=== PATIENT | male | born 1930 | race Caucasian/White ===

== ENCOUNTER 2016-08-03 10:23 | Inpatient (IN) | payer MEDICARE, BC ==
[2016-08-03] MEDS ORDERED: SODIUM CHLORIDE 0.9% 1,000 ML IV STA (10:36)
--- NOTE | 2016-08-03 10:41 | ED ---
General Adult HPI - General Chief complaint: Recheck/Abnormal Lab/Rx Stated complaint: Weakness Time Seen by Provider: 08/03/16 10:27 Source: patient Mode of arrival: EMS Limitations: no limitations - History of Present Illness Initial comments: Patient was sent to the [facility] department by his family because they do not feel that he is eating and drinking well. They're concerned he might be dehydrated. Patient denies any fever, chills, chest pain or shortness of breath. He has no belly or back pain. He has no nausea or vomiting. He has no lightheadedness or dizziness. He has had no recent illnesses or sick contacts. He denies any travel. He has no swelling the legs. He has no palpitations. He has had no changes in his medication. - Related Data Home Medications Medication Instructions Recorded Confirmed Isosorbide Mononitrate ER [Imdur] 30 mg PO DAILY 08/31/14 08/03/16 Finasteride [Proscar] 5 mg PO DAILY 02/22/15 08/03/16 Famotidine [Pepcid] 20 mg PO DAILY 10/03/15 08/03/16 Melatonin 10 mg PO HS 10/03/15 08/03/16 Nitroglycerin Sl Tabs [Nitrostat] 0.4 mg SL Q5M PRN 10/03/15 08/03/16 Levothyroxine Sodium [Synthroid] 100 mcg PO DAILY 10/04/15 08/03/16 Spironolactone [Aldactone] 25 mg PO DAILY 10/04/15 08/03/16 Acetaminophen/Diphenhydramine 2 tab PO HS 04/19/16 08/03/16 [Tylenol PM 500-25mg] Cyanocobalamin [Vitamin B-12] 500 mcg PO DAILY 04/19/16 08/03/16 Metolazone [Zaroxolyn] 5 mg PO DAILY PRN 04/19/16 08/03/16 Carvedilol [Coreg] 3.125 mg PO BID 08/03/16 08/03/16 Furosemide [Lasix] 10 mg PO DAILY 08/03/16 08/03/16 Furosemide [Lasix] 10 mg PO DAILY PRN 08/03/16 08/03/16 Furosemide [Lasix] 20 mg PO DAILY PRN 12/29/16 12/29/16 Ipratropium-Albuterol Nebulize 3 ml INHALATION RT-TID 08/03/16 08/03/16 [Duoneb 0.5 mg-3 mg/3 ml Soln] Nitrofurantoin Monohyd/M-Cryst 100 mg PO Q12HR 08/03/16 08/03/16 [Macrobid] hydrOXYzine HCL [Atarax] 10 mg PO HS 08/03/16 08/03/16 Previous Rx's Medication Instructions Recorded Amiodarone [Cordarone] 200 mg PO DAILY #30 tab 10/08/15 Tamsulosin HCl [Flomax] 0.4 mg PO HS #0 10/08/15 Allergies Allergy/AdvReac Type Severity Reaction Status Date / Time lisinopril [From Zestril] Allergy Unknown Verified 08/03/16 10:39 peanuts Allergy Cough Uncoded 08/03/16 10:35 No blood thinners AdvReac Unknown Uncoded 08/03/16 10:35 Review of Systems ROS Statement: Those systems with pertinent positive or pertinent negative responses have been documented in the HPI. ROS Other: All systems not noted in ROS Statement are negative. Past Medical History Past Medical History: Coronary Artery Disease (CAD), Chest Pain / Angina, Heart Failure, CVA/TIA, Hyperlipidemia, Hypertension, Myocardial Infarction (HI), Pneumonia Additional Past Medical History / Comment(s): Ischemic cardiomyopathy, CHF with EF 20%, nonsustained Vtach, CVAs x 2 with one hemorrhagic, R lower lobe pneumonia, UTIs, hypothyroid, BPH, divericulosis, anemia, sinus problems. Last Myocardial Infarction Date:: 09/06/2014 History of Any Multi-Drug Resistant Organisms: MRSA Date of last positivie culture/infection: 02/22/15 MDRO Source:: Urine Past Surgical History: AICD, Heart Catheterization, Pacemaker Additional Past Surgical History / Comment(s): pacemaker/ defibrillator, detached retina-unsure which eye, cataracts bilaterally , aortic stent, Past Anesthesia/Blood Transfusion Reactions: No Reported Reaction Type of Cardiac Device: Permanent Pacemaker Device Placement Date:: 09/06/2012 Past Psychological History: No Psychological Hx Reported Additional Psychological History / Comment(s): Pt has adult children (son and rudi-in-law) that reside with him. He ambulates with a walker. He no longer drives-family take him to appts. He has [employer] aide that showers pt twice a week. He is a [employer] . He is on a low sodium diet. Smoking Status: Former smoker Past Alcohol Use History: Rare Additional Past Alcohol Use History / Comment(s): Pt smoked from 1953 until about 1982. He was a pack and a half a day smoker. Past Drug Use History: None Reported - Past Family History Father Family Medical History: Myocardial Infarction (HI) General Exam Limitations: no limitations General appearance: alert, in no apparent distress Head exam: Present: atraumatic, normocephalic, normal inspection Eye exam: Present: normal appearance, PERRL, EOMI. Absent: scleral icterus, conjunctival injection, periorbital swelling ENT exam: Present: normal exam, mucous membranes moist Neck exam: Present: normal inspection. Absent: tenderness, meningismus, lymphadenopathy Respiratory exam: Present: normal lung sounds bilaterally. Absent: respiratory distress, wheezes, rales, rhonchi, stridor Cardiovascular Exam: Present: regular rate, normal rhythm, normal heart sounds. Absent: systolic murmur, diastolic murmur, rubs, gallop, clicks GI/Abdominal exam: Present: soft, normal bowel sounds. Absent: distended, tenderness, guarding, rebound, rigid Extremities exam: Present: normal inspection, full ROM, normal capillary refill. Absent: tenderness, pedal edema, joint swelling, calf tenderness Back exam: Present: normal inspection Neurological exam: Present: alert, oriented X3, CN II-XII intact Psychiatric exam: Present: normal affect, normal mood Skin exam: Present: warm, dry, intact, normal color. Absent: rash Course Vital Signs 08/03/16 08/03/16 08/03/16 10:33 11:32 12:10 Temperature 97 F L 97.4 F L Pulse Rate 50 L 50 L 50 L Respiratory 16 16 16 Rate Blood Pressure 124/58 110/58 110/57 O2 Sat by Pulse 94 L 98 97 Oximetry EKG Findings - EKG Comments: EKG Findings:: Twelve-lead EKG is obtained, interpreted by me as showing ventricular rate of 50 bpm, no P waves are present, there are pacer spikes present, QRS complexes are wide, no ST elevation or depression, interpreted by me as ventricular paced rhythm without acute ischemia. Medical Decision Making - Medical Decision Making Patient presents with decreased appetite. He has no elevated white count. Chest x-ray reveals multilobar pneumonia. I ordered blood cultures and IV antibiotics. Patient will be admitted to the hospital. - Lab Data Result diagrams: 08/03/16 10:54 08/03/16 10:54 Lab Results 08/03/16 08/03/16 08/03/16 Range/Units 10:54 10:54 10:54 WBC 11.1 H (3.8-10.6) k/uL RBC 4.71 (4.30-5.90) m/uL Hgb 14.3 (13.0-17.5) gm/dL Hct 45.3 (39.0-53.0) % MCV 96.1 (80.0-100.0) fL MCH 30.2 (25.0-35.0) pg MCHC 31.5 (31.0-37.0) g/dL RDW 15.7 H (11.5-15.5) % Plt Count 147 L (150-450) k/uL Neutrophils % 78 % Lymphocytes % 8 % Monocytes % 7 % Eosinophils % 6 % Basophils % 0 % Neutrophils # 8.6 H (1.3-7.7) k/uL Lymphocytes # 0.8 L (1.0-4.8) k/uL Monocytes # 0.7 (0-1.0) k/uL Eosinophils # 0.7 (0-0.7) k/uL Basophils # 0.0 (0-0.2) k/uL Manual Slide Review Performed Toxic Granulation Present Hypochromasia Moderate Poikilocytosis (manual Present Target Cells Present Crenated Cell Present PT 15.6 H (9.0-12.0) sec INR 1.6 (<1.1) APTT 24.6 (22.0-30.0) sec Sodium 140 (137-145) mmol/L Potassium 4.4 (3.5-5.1) mmol/L Chloride 100 (98-107) mmol/L Carbon Dioxide 27 (22-30) mmol/L Anion Gap 13 mmol/L BUN 38 H (9-20) mg/dL Creatinine 0.93 (0.66-1.25) mg/dL Est GFR (MDRD) Af Amer >60 (>60 ml/min/1.73 sqM) Est GFR (MDRD) Non-Af >60 (>60 ml/min/1.73 sqM) Glucose 96 (74-99) mg/dL Calcium 7.9 L (8.4-10.2) mg/dL Magnesium 2.1 (1.6-2.3) mg/dL Total Bilirubin 4.1 H (0.2-1.3) mg/dL AST 329 H (17-59) U/L ALT 208 H (21-72) U/L Alkaline Phosphatase 143 H (38-126) U/L Troponin I (0.000-0.034) ng/mL Total Protein 6.5 (6.3-8.2) g/dL Albumin 3.1 L (3.5-5.0) g/dL 08/03/16 Range/Units 10:54 WBC (3.8-10.6) k/uL RBC (4.30-5.90) m/uL Hgb (13.0-17.5) gm/dL Hct (39.0-53.0) % MCV (80.0-100.0) fL MCH (25.0-35.0) pg MCHC (31.0-37.0) g/dL RDW (11.5-15.5) % Plt Count (150-450) k/uL Neutrophils % % Lymphocytes % % Monocytes % % Eosinophils % % Basophils % % Neutrophils # (1.3-7.7) k/uL Lymphocytes # (1.0-4.8) k/uL Monocytes # (0-1.0) k/uL Eosinophils # (0-0.7) k/uL Basophils # (0-0.2) k/uL Manual Slide Review Toxic Granulation Hypochromasia Poikilocytosis (manual Target Cells Crenated Cell PT (9.0-12.0) sec INR (<1.1) APTT (22.0-30.0) sec Sodium (137-145) mmol/L Potassium (3.5-5.1) mmol/L Chloride (98-107) mmol/L Carbon Dioxide (22-30) mmol/L Anion Gap mmol/L BUN (9-20) mg/dL Creatinine (0.66-1.25) mg/dL Est GFR (MDRD) Af Amer (>60 ml/min/1.73 sqM) Est GFR (MDRD) Non-Af (>60 ml/min/1.73 sqM) Glucose (74-99) mg/dL Calcium (8.4-10.2) mg/dL Magnesium (1.6-2.3) mg/dL Total Bilirubin (0.2-1.3) mg/dL AST (17-59) U/L ALT (21-72) U/L Alkaline Phosphatase (38-126) U/L Troponin I 0.021 (0.000-0.034) ng/mL Total Protein (6.3-8.2) g/dL Albumin (3.5-5.0) g/dL Disposition Clinical Impression: Pneumonia Disposition: ADMITTED IP TO THIS HOSP Condition: Fair Time of Disposition: 12:31
[2016-08-03 11:22] LABS: ALT 208 U/L (21-72); AST 329 U/L (17-59); Alkaline Phosphatase 143 U/L (38-126); Anion Gap 13 mmol/L; Blood Urea Nitrogen 38 mg/dL (9-20); Calcium 7.9 mg/dL (8.4-10.2); Carbon Dioxide 27 mmol/L (22-30); Chloride 100 mmol/L (98-107); Glucose 96 mg/dL (74-99); Magnesium 2.1 mg/dL (1.6-2.3); Non-African American GFR(MDRD) >60 (>60 ml/min/1.73 sqM); Sodium 140 mmol/L (137-145); Total Bilirubin 4.1 mg/dL (0.2-1.3); Total Protein 6.5 g/dL (6.3-8.2)
[2016-08-03 11:26] LABS: Potassium 4.4 mmol/L (3.5-5.1)
[2016-08-03 11:32] LABS: INR 1.6 (<1.1); Partial Thromboplastin Time 24.6 sec (22.0-30.0); Prothrombin Time 15.6 sec (9.0-12.0)
[2016-08-03 11:33] LABS: Basophils % (A) 0 %; CH 29.9; CHCM 31.3; Eosinophils # (A) 0.7 k/uL (0-0.7); Eosinophils % (A) 6 %; HCT 45.3 % (39.0-53.0); HDW 3.01; HGB 14.3 gm/dL (13.0-17.5); Hypochromasia Moderate; Luc # (Auto) 0.19; Luc % (Auto) 2; Lymphocytes # (A) 0.8 k/uL (1.0-4.8); Lymphocytes % (A) 8 %; MCH 30.2 pg (25.0-35.0); MCHC 31.5 g/dL (31.0-37.0); MCV 96.1 fL (80.0-100.0); Mean Platelet Volume 9.5; Monocytes # (A) 0.7 k/uL (0-1.0); Monocytes % (A) 7 %; Neutrophils # (A) 8.6 k/uL (1.3-7.7); Neutrophils % (A) 78 %; RBC 4.71 m/uL (4.30-5.90); RDW 15.7 % (11.5-15.5); WBC 11.1 k/uL (3.8-10.6)
--- NOTE | 2016-08-03 11:39 | XR ---
EXAMINATION TYPE: XR chest 2V DATE OF EXAM: 08/03/2016 11:15 AM COMPARISON: Prior chest x-ray April 19, 2016 HISTORY: Cough and syncope. TECHNIQUE: Frontal and lateral views of the chest are obtained. FINDINGS: The osseous structures are intact. There is persistent cardiomegaly with multilead pacema ker/AICD. There is persistent left basilar opacity felt to reflect moderate-sized pleural effusion an d associated basilar atelectasis and/or infiltrate. New right upper lobe opacity is present IMPRESSION: Cardiomegaly with worsening right basilar opacity felt to reflect increasing moderate-si zed left pleural effusion and associated left basilar atelectasis and/or infiltrate. New right upper lobe infiltrate also noted.
--- NOTE | 2016-08-03 11:49 | CT ---
EXAMINATION TYPE: CT brain wo con DATE OF EXAM: 08/03/2016 11:18 AM COMPARISON: 04/20/2016 HISTORY: syncope, generalized weakness CT DLP: 1195 mGycm, Automated exposure control for dose reduction was used. CONTRAST: None CT of the brain is performed utilizing 3 mm thick sections through the posterior fossa and 3 mm thick sections through the remaining calvarium. Study is performed within 24 hours of arrival to the hosp ital. No abnormal hyperdensity is present to suggest an acute intracranial hemorrhage. No mass lesion is evident. No acute infarcts are evident. Periventricular white matter hypodensity is present likely on the basi s of chronic white matter ischemic changes. There is an old watershed infarct in the left parietal-oc cipital region. Old left frontal lobe subcortical infarct may also be present. A right smaller gasca hed region infarct may be present. Findings were present previously. Ventricles and sulci are prominent for the patient age. Mucosal thickening is within the left maxillary sinus. Remaining paranasal sinuses and mastoid air ce lls included within the [id number] are clear. IMPRESSIONS: 1. Atrophy and periventricular white matter changes. 2. Old prior infarcts, stable from April 2016
[2016-08-03 11:51] LABS: Manual Review Performed
[2016-08-03 11:52] LABS: Crenated RBC Present; Toxic Granulation Present
[2016-08-03 11:53] LABS: Target Cells Present
[2016-08-03] MEDS ORDERED: metroNIDAZOLE-NS PMX 500 MG in SALINE 1 100ML.BAG IVPB STA (12:29)
[2016-08-03] MEDS ORDERED: MORPHINE SULFATE 4 MG/ML SYRINGE IV PRN (12:31)
[2016-08-03] MEDS ORDERED: NALOXONE 0.4 MG/ML 1 ML VIAL IV PRN (12:31)
[2016-08-03] MEDS ORDERED: ONDANSETRON 4 MG/2 ML VIAL IVP PRN (12:31)
[2016-08-03] MEDS ORDERED: TEMAZEPAM 15 MG CAP PO PRN (12:31)
[2016-08-03 12:48] LABS: Appearance,Urine Clear (Clear); Bilirubin,Urine 1+ (Negative); Glucose,Urine (UA) Negative (Negative); Ketones,Urine Negative (Negative); Leukocyte Esterase,Urine Trace (Negative); Nitrite,Urine Negative (Negative); Particle Count 6118; Protein,Urine Trace (Negative); RBC,Urine 7 /hpf (0-5); Specific Gravity,Urine 1.016 (1.001-1.035); Squamous Epithelial Cell,Urine <1 /hpf (0-4); UA Billing (MACRO vs. MICRO) MICRO; WBC,Urine 9 /hpf (0-5)
[2016-08-03] MEDS: IPRATROPIUM-ALBUTEROL 3 ML NEB INHALATION SCH ×2 (13:44→20:00)
[2016-08-03] MEDS: CARVEDILOL 3.125 MG TAB PO SCH (17:24)
[2016-08-03] MEDS: DOXYCYCLINE 50 MG CAP PO SCH (22:00)
[2016-08-03] MEDS: hydrOXYzine HCL 10 MG TAB PO SCH (22:00)
[2016-08-03] MEDS: TAMSULOSIN 0.4 MG CAP.ER.24H PO SCH (22:01)
[2016-08-03] MEDS: FAMOTIDINE 20 MG TAB PO SCH (22:01)
[2016-08-03] MEDS: FUROSEMIDE 10 MG/ML 2 ML VIAL IV SCH (22:07)
[2016-08-04] MEDS: LEVOTHYROXINE 100 MCG TAB PO SCH (06:22)
[2016-08-04] MEDS: IPRATROPIUM-ALBUTEROL 3 ML NEB INHALATION SCH ×3 (07:30→20:25)
[2016-08-04] MEDS: ISOSORBIDE MONONITRATE ER 30 MG TAB.ER.24H PO SCH (07:47)
[2016-08-04] MEDS: AMIODARONE 200 MG TAB PO SCH (07:47)
[2016-08-04] MEDS: CARVEDILOL 3.125 MG TAB PO SCH ×2 (07:47→17:29)
[2016-08-04] MEDS: HEPARIN SODIUM,PORCINE 5,000 UNIT/ML 1 ML VIAL SQ SCH ×2 (07:51→11:18)
[2016-08-04] MEDS: CYANOCOBALAMIN 500 MCG TAB PO SCH (07:51)
[2016-08-04] MEDS: FUROSEMIDE 10 MG/ML 2 ML VIAL IV SCH ×2 (07:51→21:53)
[2016-08-04] MEDS: SPIRONOLACTONE 25 MG TAB PO SCH (07:51)
[2016-08-04] MEDS: FINASTERIDE 5 MG TAB PO SCH (07:51)
[2016-08-04] MEDS: FAMOTIDINE 20 MG TAB PO SCH ×2 (07:51→21:55)
[2016-08-04] MEDS: DOXYCYCLINE 50 MG CAP PO SCH ×2 (07:51→21:53)
--- NOTE | 2016-08-04 08:36 | HP ---
DATE OF ADMISSION: Chief complaint is generalized weakness. HISTORY OF PRESENTING ILLNESS: Mr. Isbell is an 85-year-old male with a known history of ischemic cardiomyopathy, status post AICD placement, hypertension, hyperlipidemia, and recent MRSA urinary tract infection, status post antibiotic course of vancomycin completed last Sunday, came to the hospital with complaints of coughing of blood and generalized weakness. Evidently patient does not feel good enough to eat and drink very well. Concerned about patient is dehydrated. Otherwise denied any complaints of fever or chills. No chest pain or short of breath. No abdominal pain, nausea, vomiting. As per the patient is poor historian and as well as family member at bedside, patient apparently has not been eating and lost about 16 pounds during the last 2 weeks. No recent travel. No sick contacts at home. Patient's family is concerned about rather he had MRSA infection again. Apparently the patient had urine sample left at physician's office about 2 or 3 days back to be tested for MRSA at that time. Otherwise, the patient currently denied any complaints of cough or sputum production. Patient had a chest x-ray done in the ER showed cardiomegaly and with worsening right basilar opacity felt to reflect increasing moderate size left pleural effusion and associated left basilar atelectasis or infiltrate. New right upper lobe infiltrate also noted. Patient was started on antibiotics in the form ceftriaxone and doxycycline at this time. CT of the brain on admission showed atrophy and periventricular white matter changes and old prior infarcts, stable from April 2016. Laboratory data slightly elevated AST, ALT, and alk phos levels and total bilirubin. Troponin is negative. Albumin 3.1. UA showed trace protein and moderate blood, nitrite negative, trace leukocyte esterase, WBC 9. Urine culture was ordered as well. REVIEW OF SYSTEMS: CONSTITUTIONAL: No fever. No chills. Patient does have generalized weakness and malaise. RESPIRATORY: No cough or sputum production. Patient coughed up blood streak prior to admission. CARDIOVASCULAR: No chest pain. No short of breath. No leg swelling. ABDOMEN: No nausea, vomiting, abdominal pain. GENITOURINARY: Negative. ENDOCRINE: Negative. PSYCHIATRIC: Negative. SKIN: Negative. All other 14-point review of systems negative except the above. Past medical history includes ischemic cardiomyopathy with ejection fraction 20% , status post AICD placement, coronary artery disease, CHF with systolic dysfunction, history of CVA/TIA, hypertension, hyperlipidemia, history of AR, CVA x2 with one hemorrhagic, right lower lobe pneumonia history and recent MRSA urinary tract infection, hypothyroidism, BPH, diverticulosis, anemia and sinus problem. PAST SURGICAL HISTORY: AICD placement, cardiac catheterization, detached retina, cataracts bilaterally, aortic stent placement. PSYCHOSOCIAL HISTORY: Patient ambulates with walker. No psychosocial history. SOCIAL HISTORY: Patient a former smoker, quit in 1982. He was 1-1/2 pack per day. FAMILY HISTORY: Father had AR. Allergies include LISINOPRIL, PEANUTS and NO BLOOD THINNERS. Home medications include: 1. Proscar. 2. Famotidine. 3. Melatonin. 4. Nitroglycerin sublingual. 5. Levothyroxine, 6. Spironolactone. 7. Tylenol PM. 8. Metolazone. 9. Coreg. 10. Lasix. 11. DuoNeb. 12. Nitrofurantoin. 13. Nitroglycerin. 14. Atarax. ( ) medication include amiodarone and Flomax. PHYSICAL EXAMINATION: An 85-year-old male lying in the bed. Awake, alert, oriented x3, appears to be in no apparent distress. VITALS: On admission, blood pressure is 107/55, pulse is 55, respiratory rate 16, temperature afebrile, pulse ox 97% on room air. HEENT: Atraumatic, normocephalic. Neck is supple. No JVD. CVS: S1, S2 heard. No murmur, no gallop. LUNGS: Bilateral diminished breath sounds basally. Crackles at the left base. No wheezing. Nonlabored breathing. ABDOMEN: Soft, nontender. Bowel sounds present. MANAGER HEART: Awake, alert, oriented x3. No focal neurologic deficits. Cranial nerves grossly intact. EXTREMITIES: Bilateral trace edema. Pulses are palpable bilaterally. No clubbing or cyanosis. PSYCHIATRIC: Cooperative. LABORATORY DATA: WBC 11.1, hemoglobin 14.3, platelets 147. INR 1.6. Sodium 140, potassium 4.4, chloride 100, bicarb is 27. BUN 38, creatinine 0.93. Total bilirubin is 4.1. AST 329, ALT is 208, alk phos 143. Albumin 3.1. Troponin 0.021. UA showed trace glucose, moderate blood, trace leukocyte esterase and WBC 9. Urine culture was ordered. Chest x-ray showed cardiomegaly with worsening right basilar opacity felt to reflect increasing moderate size left pleural effusion and associated left basilar atelectasis or infiltrate; new right upper lobe infiltrate also noted. IMPRESSION: 1. Bilateral pneumonia. 2. Worsening left pleural effusion with possible acute on chronic congestive heart failure with systolic dysfunction, will check BNP level. 3. Recent methicillin-resistant Staphylococcus aureus urinary tract infection, status post antibiotic course with vancomycin. Patient still complaining of urinary symptoms and will order UA and urine culture as well. 4. Ischemic cardiomyopathy, ejection fraction 20%, status post AICD placement. 5. Acute coronary artery disease. 6. History of myocardial infarction. 7. Hypothyroidism. 8. Hypertension. 9. Gastroesophageal reflux disease. 10. History of cerebrovascular accident/transient ischemic attack, no residual weakness with one hemorrhagic cerebrovascular accident. 11. Elevated liver enzymes, possible hepatic congestion. 12. Hyperbilirubinemia. 13. Mild to moderate protein calorie malnutrition with albumin level of 3.1 due to poor oral intake. 14. Medical debility. DISCUSSION AND PLAN: An 85-year-old male with known history of multiple medical problems and comorbid conditions was admitted to the hospital with generalized weakness and found to have bilateral pneumonia and worsening left pleural effusion. Patient has a history of biventricular pacemaker placement. Patient will be continued on antibiotics in the form of ceftriaxone ( ) for pneumonia and continue the diuresis as blood pressure tolerates. Follow up closely. Further recommendations depends on clinical course. Will get cardiology consultation. Prognosis guarded. I did discuss with his family at bedside.
[2016-08-04 08:44] LABS: Basophils # (A) 0.1 k/uL (0-0.2); Basophils % (A) 1 %; CH 29.3; CHCM 29.8; Eosinophils # (A) 0.3 k/uL (0-0.7); Eosinophils % (A) 2 %; HCT 46.8 % (39.0-53.0); HDW 2.94; HGB 14.3 gm/dL (13.0-17.5); Hypochromasia Marked; Luc # (Auto) 0.25; Luc % (Auto) 2; Lymphocytes # (A) 0.6 k/uL (1.0-4.8); Lymphocytes % (A) 5 %; MCH 30.3 pg (25.0-35.0); MCHC 30.5 g/dL (31.0-37.0); MCV 99.4 fL (80.0-100.0); Macrocytosis Slight; Mean Platelet Volume 9.7; Monocytes # (A) 0.8 k/uL (0-1.0); Monocytes % (A) 7 %; Neutrophils # (A) 9.5 k/uL (1.3-7.7); Neutrophils % (A) 83 %; RBC 4.71 m/uL (4.30-5.90); RDW 15.8 % (11.5-15.5); WBC 11.5 k/uL (3.8-10.6); WBC (Perox) 11.56
[2016-08-04 08:58] LABS: Manual Review Performed
[2016-08-04 08:59] LABS: Target Cells Present
[2016-08-04 09:02] LABS: Anion Gap 13 mmol/L; Blood Urea Nitrogen 30 mg/dL (9-20); Calcium 7.7 mg/dL (8.4-10.2); Carbon Dioxide 26 mmol/L (22-30); Chloride 100 mmol/L (98-107); Glucose 100 mg/dL (74-99); Non-African American GFR(MDRD) >60 (>60 ml/min/1.73 sqM); Sodium 139 mmol/L (137-145)
[2016-08-04 09:08] LABS: Potassium 3.9 mmol/L (3.5-5.1)
[2016-08-04] MEDS: TAMSULOSIN 0.4 MG CAP.ER.24H PO SCH (21:53)
[2016-08-04] MEDS: hydrOXYzine HCL 10 MG TAB PO SCH (21:54)
[2016-08-05] MEDS: LEVOTHYROXINE 100 MCG TAB PO SCH (06:45)
[2016-08-05 09:02] LABS: ALT 248 U/L (21-72); AST 287 U/L (17-59); Alkaline Phosphatase 150 U/L (38-126); Anion Gap 10 mmol/L; Blood Urea Nitrogen 28 mg/dL (9-20); Calcium 7.8 mg/dL (8.4-10.2); Carbon Dioxide 28 mmol/L (22-30); Chloride 100 mmol/L (98-107); Glucose 97 mg/dL (74-99); Non-African American GFR(MDRD) >60 (>60 ml/min/1.73 sqM); Sodium 138 mmol/L (137-145); Total Bilirubin 4.4 mg/dL (0.2-1.3); Total Protein 5.2 g/dL (6.3-8.2)
[2016-08-05] MEDS: DOXYCYCLINE 50 MG CAP PO SCH ×2 (09:10→21:05)
[2016-08-05] MEDS: CARVEDILOL 3.125 MG TAB PO SCH ×3 (09:10→17:56)
[2016-08-05] MEDS: FUROSEMIDE 10 MG/ML 2 ML VIAL IV SCH ×2 (09:11→21:05)
[2016-08-05] MEDS: ISOSORBIDE MONONITRATE ER 30 MG TAB.ER.24H PO SCH ×2 (09:11→09:26)
[2016-08-05] MEDS: AMIODARONE 200 MG TAB PO SCH ×2 (09:11→09:25)
[2016-08-05] MEDS: CYANOCOBALAMIN 500 MCG TAB PO SCH (09:11)
[2016-08-05] MEDS: FAMOTIDINE 20 MG TAB PO SCH ×2 (09:11→21:04)
[2016-08-05] MEDS: FINASTERIDE 5 MG TAB PO SCH (09:11)
[2016-08-05 09:20] LABS: Potassium 2.9 mmol/L (3.5-5.1)
[2016-08-05] MEDS: SPIRONOLACTONE 25 MG TAB PO SCH (09:26)
[2016-08-05] MEDS ORDERED: Potassium Replacement Protocol 1 EACH MISC MISCELLANE PRN (09:26)
[2016-08-05] MEDS: POTASSIUM CHLORIDE ER 20 MEQ TAB.ER PO SCH ×2 (10:00→10:50)
[2016-08-05] MEDS: POTASSIUM CHLORIDE 10 MEQ, LIDOCAINE 2% INJ 10 MG in SODIUM CHLORIDE 0.9% 100 ML IV SCH ×3 (11:12→14:49)
[2016-08-05] MEDS: IPRATROPIUM-ALBUTEROL 3 ML NEB INHALATION SCH ×3 (12:58→20:05)
--- NOTE | 2016-08-05 14:02 | PN ---
DATE OF SERVICE: 08/04/2016 INTERVAL HISTORY: Mr. Isbell is an 85-year-old male with known history of ischemic cardiomyopathy status post biventricular ICD, hypertension, hyperlipidemia, recent MRSA urinary tract infection, status post antibiotic course with vancomycin completed last Sunday, was admitted to the hospital with complaints of generalized weakness and not feeling well and unable to tolerate p.o. diet. Otherwise patient was found to have bilateral pneumonia and was started on antibiotics and currently patient is clinically improved. Otherwise patient also has bilateral pleural effusion for which the patient was started on IV Lasix as well for acute CHF exacerbation. Urine culture was sent. Patient says that he is feeling better today. Otherwise, patient denied any fever or chills. No acute overnight issues. No chest pain. No worsening shortness of breath. No leg swelling. REVIEW OF SYSTEMS: CONSTITUTIONAL: No fever. No chills. RESPIRATORY: No cough or sputum production. CARDIOVASCULAR: No chest pain. No worsening short of breath. ABDOMEN: No nausea, vomiting or abdominal pain. GENITOURINARY: Negative. ENDOCRINE: Negative. PSYCHIATRIC: Negative. SKIN: Negative. All other fourteen point review of systems negative except as above. Current medications include: DuoNeb, Cordarone, Coreg, ceftriaxone, B12, doxycycline, Pepcid, Proscar, Lasix, hydralazine, Imdur, Levothyroxine, morphine sulfate, Narcan, Zofran, Aldactone, tamsulosin, Restoril and Ultram. PHYSICAL EXAMINATION: An 85-year-old male lying in bed comfortably. Awake, alert, oriented x3, appears to be in no apparent distress. VITALS: Blood pressure is 105/48, pulse is 61, respirations 18, temperature afebrile, pulse ox is 90% on 2-L nasal cannula. HEENT: Atraumatic, normocephalic. Neck is supple. No JVD. CVS: S1, S2 heard. No murmurs, no gallop. LUNGS: Bilateral air entry is present. No wheezing. No crackles. Nonlabored breathing. ABDOMEN: Soft, nontender. Bowel sounds are present. LUNGS: Bilateral air entry is present. Decreased breath sounds basally and diminished breath sounds. No wheezing. WEED THINNER: Awake, alert, oriented x3. No focal neurologic deficit. EXTREMITIES: Bilateral lower extremity 2+ edema. Pulses palpable bilaterally. No clubbing or cyanosis. PSYCHIATRIC: Cooperative. LABORATORY DATA: WBC 11.5, hemoglobin 14.3, platelets 89, sodium 139, potassium 3.9, chloride 100, bicarb is 26. BUN 30, creatinine 0.9, calcium 7.7. IMPRESSION: 1. Bilateral pneumonia. 2. Acute on chronic congestive heart failure with systolic dysfunction with worsening left pleural effusion. 3. Recent methicillin-resistant Staphylococcus aureus urinary tract infection, status post antibiotic course with vancomycin. Repeat urine culture was ordered. Urinalysis is not very suggestive of infection. 4. Ischemic cardiomyopathy with ejection fraction 20%, status post biventricular ICD. 5. History of coronary artery disease. 6. History of myocardial infarction. 7. Hypothyroidism. 8. Hypertension. 9. Gastroesophageal reflux disease. 10. History of cerebrovascular accident/transient ischemic attack. No residual weakness with history of hemorrhagic cerebrovascular accident. 11. Elevated liver enzymes, positive hepatic congestion. Will follow up repeat levels. 12. Hyperbilirubinemia. 13. Mild to moderate protein calorie malnutrition. 14. Medical debility. 15. Poor oral intake. DISCUSSION AND PLAN: This 85-year-old male admitted to the hospital with generalized weakness and malaise and not tolerating p.o. diet. Patient will be continued on the antibiotics and encourage p.o. intake. Continue with IV diuresis. The patient improved clinically. Will continue the current management. Further recommendations based on clinical course. Prognosis is guarded.
[2016-08-05] MEDS: hydrOXYzine HCL 10 MG TAB PO SCH (21:05)
[2016-08-05] MEDS: TAMSULOSIN 0.4 MG CAP.ER.24H PO SCH (21:05)
[2016-08-06] MEDS: FUROSEMIDE 10 MG/ML 2 ML VIAL IV SCH ×2 (08:09→20:48)
[2016-08-06] MEDS: IPRATROPIUM-ALBUTEROL 3 ML NEB INHALATION SCH ×3 (08:29→19:49)
[2016-08-06] MEDS: CYANOCOBALAMIN 500 MCG TAB PO SCH (11:09)
[2016-08-06] MEDS: LEVOTHYROXINE 100 MCG TAB PO SCH (11:09)
[2016-08-06] MEDS: SPIRONOLACTONE 25 MG TAB PO SCH (11:09)
[2016-08-06] MEDS: DOXYCYCLINE 50 MG CAP PO SCH ×2 (11:09→20:48)
[2016-08-06] MEDS: FAMOTIDINE 20 MG TAB PO SCH ×2 (11:10→20:48)
[2016-08-06] MEDS: CARVEDILOL 3.125 MG TAB PO SCH ×2 (11:10→17:01)
[2016-08-06] MEDS: AMIODARONE 200 MG TAB PO SCH (11:10)
[2016-08-06] MEDS: ISOSORBIDE MONONITRATE ER 30 MG TAB.ER.24H PO SCH (11:10)
[2016-08-06] MEDS: FINASTERIDE 5 MG TAB PO SCH (11:10)
--- NOTE | 2016-08-06 11:33 | US ---
EXAMINATION TYPE: US liver DATE OF EXAM: 08/06/2016 11:04 AM COMPARISON: on PACS CLINICAL HISTORY: MRSA, poor historian, liver. Patient unable to turn LLD. . EXAM MEASUREMENTS: Liver Length: 16.8 cm Gallbladder Wall: 0.3 cm CBD: 0.5 cm Right Kidney: 10.9 x 5.1 x 5.1 cm TECHNOLOGIST IMPRESSION: Anatomy- Pancreas: Echogenic, tail not well seen due to overlying bowel gas Liver: wnl Gallbladder: possible sludge seen, no sign of stones or mass Evidence for sonographic Farr's sign: neg CBD: wnl Right Kidney: slightly echogenic IMPRESSION: Sludge within the gallbladder. Normal Values: Liver Length: < 16cm wnl, 17-18cm upper limits, >18cm enlarged Renal Length = 9 - 12cm GB Wall: < 0.3cm CBD: < 0.6cm or < 1.0cm post cholecystectomy
[2016-08-06] MEDS: TAMSULOSIN 0.4 MG CAP.ER.24H PO SCH (20:48)
[2016-08-06] MEDS: hydrOXYzine HCL 10 MG TAB PO SCH (20:48)
[2016-08-07] MEDS: LEVOTHYROXINE 100 MCG TAB PO SCH (06:30)
[2016-08-07] MEDS: IPRATROPIUM-ALBUTEROL 3 ML NEB INHALATION SCH ×4 (07:21→21:25)
[2016-08-07] MEDS: CARVEDILOL 3.125 MG TAB PO SCH ×2 (09:31→17:19)
[2016-08-07] MEDS: FAMOTIDINE 20 MG TAB PO SCH ×2 (09:31→20:12)
[2016-08-07] MEDS: DOXYCYCLINE 50 MG CAP PO SCH ×2 (09:31→20:12)
[2016-08-07] MEDS: ISOSORBIDE MONONITRATE ER 30 MG TAB.ER.24H PO SCH (09:31)
[2016-08-07] MEDS: AMIODARONE 200 MG TAB PO SCH (09:31)
[2016-08-07] MEDS: CYANOCOBALAMIN 500 MCG TAB PO SCH (09:31)
[2016-08-07] MEDS: FUROSEMIDE 10 MG/ML 2 ML VIAL IV SCH ×2 (09:32→20:12)
[2016-08-07] MEDS: SPIRONOLACTONE 25 MG TAB PO SCH (09:32)
[2016-08-07] MEDS: FINASTERIDE 5 MG TAB PO SCH (09:32)
[2016-08-07 12:08] VITALS: BMI 23.0
--- NOTE | 2016-08-07 14:12 | XR ---
EXAMINATION TYPE: XR chest 1V DATE OF EXAM: 08/07/2016 1:38 PM COMPARISON: Prior chest x-ray 03 August 2016 HISTORY: Pneumonia TECHNIQUE: Single frontal view of the chest is obtained. FINDINGS: Airspace disease in the right upper lobe persists. Interstitium is increased. Retrocardiac density is again noted. No evident pneumothorax. Intracardiac defibrillator leads are stable, the he art is enlarged. IMPRESSION: Correlate for congestive heart failure with possible associated effusion, edema, atelect asis, pneumonia not excluded, correlate, follow-up recommended.
[2016-08-07] MEDS: hydrOXYzine HCL 10 MG TAB PO SCH (20:12)
[2016-08-07] MEDS: TAMSULOSIN 0.4 MG CAP.ER.24H PO SCH (20:13)
[2016-08-08 03:45] LABS: Basophils # (A) 0.1 k/uL (0-0.2); Basophils % (A) 1 %; CH 29.9; CHCM 30.9; Eosinophils # (A) 0.2 k/uL (0-0.7); Eosinophils % (A) 2 %; HCT 40.2 % (39.0-53.0); HDW 2.87; HGB 12.3 gm/dL (13.0-17.5); Hypochromasia Moderate; Luc # (Auto) 0.14; Luc % (Auto) 1; Lymphocytes # (A) 0.7 k/uL (1.0-4.8); Lymphocytes % (A) 7 %; MCH 29.7 pg (25.0-35.0); MCHC 30.5 g/dL (31.0-37.0); MCV 97.4 fL (80.0-100.0); Macrocytosis Slight; Mean Platelet Volume 8.4; Monocytes # (A) 0.7 k/uL (0-1.0); Monocytes % (A) 6 %; Neutrophils # (A) 8.8 k/uL (1.3-7.7); Neutrophils % (A) 83 %; RBC 4.13 m/uL (4.30-5.90); RDW 15.9 % (11.5-15.5); WBC 10.6 k/uL (3.8-10.6); WBC (Perox) 10.79
[2016-08-08 03:48] LABS: ALT 179 U/L (21-72); AST 186 U/L (17-59); Alkaline Phosphatase 127 U/L (38-126); Anion Gap 9 mmol/L; Blood Urea Nitrogen 30 mg/dL (9-20); Calcium 7.5 mg/dL (8.4-10.2); Carbon Dioxide 29 mmol/L (22-30); Chloride 105 mmol/L (98-107); Glucose 95 mg/dL (74-99); Non-African American GFR(MDRD) >60 (>60 ml/min/1.73 sqM); Potassium 3.4 mmol/L (3.5-5.1); Sodium 143 mmol/L (137-145); Total Bilirubin 5.5 mg/dL (0.2-1.3)
[2016-08-08] MEDS ORDERED: Potassium Replacement Protocol 1 EACH MISC MISCELLANE PRN (04:31)
[2016-08-08] MEDS: LEVOTHYROXINE 100 MCG TAB PO SCH (06:16)
[2016-08-08] MEDS: IPRATROPIUM-ALBUTEROL 3 ML NEB INHALATION SCH ×3 (07:24→19:23)
[2016-08-08] MEDS: ISOSORBIDE MONONITRATE ER 30 MG TAB.ER.24H PO SCH (08:00)
[2016-08-08] MEDS: FUROSEMIDE 10 MG/ML 2 ML VIAL IV SCH ×3 (08:03→23:18)
[2016-08-08] MEDS: POTASSIUM CHLORIDE ER 20 MEQ TAB.ER PO SCH ×2 (08:03→10:46)
[2016-08-08] MEDS: CARVEDILOL 3.125 MG TAB PO SCH ×2 (08:03→15:42)
[2016-08-08] MEDS: DOXYCYCLINE 50 MG CAP PO SCH ×2 (08:04→20:57)
[2016-08-08] MEDS: CYANOCOBALAMIN 500 MCG TAB PO SCH (08:04)
[2016-08-08] MEDS: FINASTERIDE 5 MG TAB PO SCH (08:04)
[2016-08-08] MEDS: AMIODARONE 200 MG TAB PO SCH (08:04)
[2016-08-08] MEDS: SPIRONOLACTONE 25 MG TAB PO SCH (08:04)
[2016-08-08] MEDS: FAMOTIDINE 20 MG TAB PO SCH ×2 (08:04→20:57)
[2016-08-08] MEDS: traMADol 50 MG TAB PO PRN ×2 (10:19→20:58)
--- NOTE | 2016-08-08 13:46 | PN ---
DATE OF SERVICE: 08/07/2016 INTERVAL HISTORY: Mr. Isbell is an 85-year-old male with a known history of ischemic cardiomyopathy status post ICD , hypertension, hyperlipidemia, and recent MRSA urinary tract infection and status post antibiotic course of vancomycin ( ) admitted to the hospital with generalized weakness, not feeling well and unable to tolerate p.o. diet. Patient was found to have bilateral pneumonia and pleural effusions and currently being diuresed with IV Lasix as well as antibiotics for possible pneumonia, currently the patient today more awake and oriented, tolerating a p.o. diet slightly. Otherwise, denied any fever, chills. No acute overnight issues. REVIEW OF SYSTEMS: CONSTITUTIONAL: No fever, no chills. RESPIRATORY: No cough or sputum production. CARDIOVASCULAR: No chest pain or shortness of breath. ABDOMEN: No nausea, vomiting. No abdominal pain. GENITOURINARY: Negative. ENDOCRINE: Negative. PSYCHIATRY: Negative. All other 14 point review of systems negative except as above. CURRENT MEDICATIONS: Reviewed. PHYSICAL EXAMINATION: An 85-year-old male lying in bed comfortably. Awake, alert, oriented, x3 appears to be in no apparent distress. VITALS: Blood pressure is 121/51, pulse is 102, respirations 22, temperature afebrile. Pulse ox 98% on 3 liters nasal cannula. HEENT: Atraumatic, normocephalic. Neck is supple. No JVD. CVS: S1, S2 heard. No murmurs, no gallop. LUNGS: Bilateral air entry is present. No wheezing. ( ) bibasilar crackles positive. Nonlabored breathing. ABDOMEN: Soft, nontender. Bowel sounds present. CENTRAL NERVOUS SYSTEM: Awake, alert and oriented x3. No focal deficit. EXTREMITIES: No edema. Pulses palpable bilaterally. No clubbing or cyanosis. PSYCHIATRIC: Cooperative. LABORATORY DATA: Sodium 138, potassium 2.9, chloride 100, bicarb is 28, BUN 28, creatinine 0.8. Liver enzymes are trending down. Albumin 2.4. IMPRESSION: 1. Acute on chronic congestive heart failure with systolic dysfunction, ejection fraction 20% with worsening left pleural effusion. 2. Bilateral pneumonia. 3. Recent Methicillin-resistant Staph aureus urinary tract infection. Currently urine cultures pending at this time. 4. Ischemic cardiomyopathy with ejection fraction 20% status post ICD. 5. History of coronary artery disease. 6. History of myocardial infarction. 7. Hypothyroidism. 8. Hypertension. 9. Gastroesophageal reflux disease. 10. History of cerebrovascular accident/transient ischemic attack. Lower extremity weakness and history of hemorrhagic cerebrovascular accident. 11. Elevated liver enzymes. Possible hepatic congestion and trending down. 12. Hypoalbuminemia. 13. Mild to moderate protein calorie malnutrition. 14. Medical debility. 15. Poor oral intake. DISCUSSION AND PLAN: An 85 -year-old male admitted to the hospital with worsening generalized weakness and malaise and not tolerating p.o. diet. Patient will be continued with diuresis. Continue on antibiotics, encourage p.o. intake and follow up closely. Prognosis guarded. Further recommendations based on the clinical course.
--- NOTE | 2016-08-08 13:56 | PN ---
DATE OF SERVICE: 08/06/2016 INTERVAL HISTORY: Mr. Isbell is an 85-year-old male with known history of multiple medical problems admitted to the hospital with generalized weakness and found to have bilateral pneumonia and pleural effusions currently being treated for acute CHF exacerbation with IV diuresis and also antibiotics for pneumonia. The patient is otherwise lying in the bed comfortably, could not provide any history at this time. Able to tolerate p.o. diet slowly. Urine culture showed skin and ( ) kanwal. Possible contaminant sample. Otherwise, patient denied any chest pain or short of breath now. Patient is a poor historian. Complete review of systems could not be obtained from the patient. CURRENT MEDICATIONS: Reviewed. PHYSICAL EXAMINATION: An 85-year-old male lying in bed comfortably, awake, alert, oriented times two to three, appears to be in no apparent distress. VITALS: Blood pressure is 132/71, pulse 82, respiratory rate 22, temperature afebrile. Pulse ox 98% on room air. HEENT: Atraumatic, normocephalic. Neck is supple. No JVD. CVS: S1, S2 heard. No murmurs, no gallop. LUNGS: Bilateral air entry is present. Basilar crackles positive. Nonlabored breathing. ABDOMEN: Soft, nontender. Bowel sounds are present. WEB ARCHITECT: Awake, alert, oriented x2 to 3, appears to be in no apparent distress. No focal neurologic deficits. EXTREMITIES: No edema. Pulses are palpable bilaterally. No clubbing or cyanosis. PSYCHIATRIC: Cooperative. LABORATORY DATA: Reviewed. IMPRESSION: 1. Acute on chronic congestive heart failure ( ) systolic dysfunction with pleural effusions, chronic. 2. Bilateral pneumonia. 3. Recent Methicillin-resistant Staph aureus urinary tract infection. Currently ( ) kanwal. 4. Ischemic cardiomyopathy, ejection fraction 20%, status post AICD placement. 5. Severe hypokalemia, resolved. 6. History of coronary artery disease. 7. History of myocardial infarction. 8. Hypothyroidism. 9. Hypertension. 10. Gastroesophageal reflux disease. 11. History of cerebrovascular accident/transient ischemic attack. 12. No residual weakness. 13. History of hemorrhagic cerebrovascular accident. 14. Elevated liver enzymes with possible hepatic congestion trending down at this time. 15. Hyperbilirubinemia. 16. Mild to moderate protein calorie malnutrition. 17. Moderate debility. 18. Poor oral intake. DISCUSSION AND PLAN: The patient admitted to the hospital with generalized weakness and currently being treated for pneumonia and acute CHF exacerbation and urine culture showed contaminant sample and otherwise, will continue the current management and progress is guarded. Further recommendations based on clinical course.
[2016-08-08 14:29] LABS: CHCM 30.6; HCT 40.6 % (39.0-53.0); HDW 2.84; HGB 12.4 gm/dL (13.0-17.5); Hypochromasia Marked; MCHC 30.4 g/dL (31.0-37.0); MCV 98.6 fL (80.0-100.0); Macrocytosis Slight; Mean Platelet Volume 8.6; RBC 4.12 m/uL (4.30-5.90); RDW 15.8 % (11.5-15.5); WBC 11.9 k/uL (3.8-10.6)
--- NOTE | 2016-08-08 14:34 | PN ---
DATE OF SERVICE: 08/07/2016 INTERVAL HISTORY: Mr. Isbell is an 85-year-old male with a known history of multiple medical problems, admitted to the hospital with generalized weakness, unable to tolerate p.o. diet. Patient was found to have acute CHF and pneumonia, currently being treated with antibiotic in the form of Rocephin and doxycycline and also IV diuresis. Hypokalemia resolved. Otherwise, patient has a poor oral intake and currently drowsy and could not provide any history. No acute overnight issues. No clubbing or cyanosis. Patient apparently moans all night. REVIEW OF SYSTEMS: CONSTITUTIONAL: No current images. RESPIRATORY: No cough or sputum production. CARDIOVASCULAR: No chest pain. ABDOMEN: No nausea, vomiting, or abdominal pain. GENITOURINARY: Negative. ENDOCRINE: Negative. PSYCHIATRY: Negative. SKIN: Negative. Complete review of systems could not be obtained from the patient. Current medications include DuoNeb, amiodarone, Coreg, ceftriaxone, vitamin B12, Vibramycin, Pepcid, Proscar, Lasix, Atarax, Imdur, levothyroxine, potassium per protocol, Narcan, spironolactone, Flomax, temazepam, tramadol. PHYSICAL EXAMINATION: An 85-year-old male lying in bed, awake, alert, could not provide any history. VITALS: Blood pressure is 108/52, pulse is 61, respirations 18, temperature afebrile, pulse ox is 91% on 2 L nasal cannula. HEENT: Atraumatic, normocephalic. Neck is supple, no JVD. CARDIOVASCULAR: S1, S2 heard, no murmurs, no gallop. LUNGS: Bilateral worsening pleural-appearing. Abdomen is soft, nontender, bowel sounds present. LIFE SKILLS SPECIALIST: Awake, alert, oriented 1 to 2, patient in no apparent distress. No focal deficit. EXTREMITIES: No edema, pulses palpable bilaterally, no clubbing or cyanosis. PSYCHIATRIC: Cooperative. LABORATORY DATA: Reviewed. IMPRESSION: 1. Acute on congestive heart failure with worsening pleural effusion. 2. Bilateral pneumonia. 3. Recent methicillin-resistant Staphylococcus aureus urinary tract infection. 4. Severe hypokalemia, resolved. 5. Acute metabolic encephalopathy secondary to congestive heart failure. 6. Ischemic cardiomyopathy with ejection fraction 20%, status post ICD placement. 7. History of coronary artery disease. 8. History of myocardial infarction. 9. Hypothyroidism. 10. Hypertension. 11. Gastroesophageal reflux disease. 12. History of cerebrovascular accident/transient ischemic attack. 13. History of hemorrhagic cerebrovascular accident. 14. Elevated liver enzymes trending down secondary to hepatic condition. 15. Hyperbilirubinemia. 16. Mild to moderate protein calorie malnutrition. 17. Medical debility. 18. Poor oral intake. 19. Admitted to hospital with generalized weakness and malaise, not tolerating p.o. diet. Continue with IV diuresis. Subsequently, showed a worsening pleural effusion. Will continue with the current antibiotics, continue to follow closely. Further recommendations based on clinical course.
[2016-08-08] MEDS: TAMSULOSIN 0.4 MG CAP.ER.24H PO SCH (20:57)
[2016-08-08] MEDS: hydrOXYzine HCL 10 MG TAB PO SCH (20:57)
[2016-08-09 01:02] VITALS: RESP 18
[2016-08-09] MEDS ORDERED: POTASSIUM CHLORIDE ER 20 MEQ TAB.ER PO SCH (04:00)
[2016-08-09 06:05] VITALS: BP 133/50; TEMP 98.3
[2016-08-09] MEDS: LEVOTHYROXINE 100 MCG TAB PO SCH (06:22)
[2016-08-09] MEDS: traMADol 50 MG TAB PO PRN ×2 (06:22→13:20)
[2016-08-09] MEDS: ISOSORBIDE MONONITRATE ER 30 MG TAB.ER.24H PO SCH (07:53)
[2016-08-09] MEDS: FAMOTIDINE 20 MG TAB PO SCH (07:53)
[2016-08-09] MEDS: SPIRONOLACTONE 25 MG TAB PO SCH (07:53)
[2016-08-09] MEDS: FUROSEMIDE 10 MG/ML 2 ML VIAL IV SCH (07:53)
[2016-08-09] MEDS: CARVEDILOL 3.125 MG TAB PO SCH (07:53)
[2016-08-09] MEDS: CYANOCOBALAMIN 500 MCG TAB PO SCH (07:54)
[2016-08-09] MEDS: DOXYCYCLINE 50 MG CAP PO SCH (07:54)
[2016-08-09] MEDS: FINASTERIDE 5 MG TAB PO SCH (07:54)
[2016-08-09] MEDS: AMIODARONE 200 MG TAB PO SCH (07:54)
[2016-08-09] MEDS: IPRATROPIUM-ALBUTEROL 3 ML NEB INHALATION SCH ×2 (07:55→13:49)
--- NOTE | 2016-08-09 11:39 | PN ---
DATE OF SERVICE: 08/08/2016 INTERVAL HISTORY: Mr. Isbell is an 85-year-old male with a known history of multiple medical problems, was admitted to the hospital with generalized weakness and unable to tolerate p.o. diet. Patient was found to have acute CHF as well as pneumonia, currently being treated with antibiotic in the form of Rocephin and doxycycline and also gentle IV diuresis due to hypotension. Otherwise, the patient does have history of cardiomyopathy with low ejection fraction and AICD placement. Today, the patient is more awake and oriented. The patient's son and [id number] at bedside. Otherwise, the patient is confused at times. The patient does have cough with blood streaks in the sputum. Otherwise, hemoglobin is stable. Lasix has been changed to q.8 hours now. REVIEW OF SYSTEMS: The patient denied any complaints of chest pain. No worsening of short of breath. No leg swelling. No nausea, vomiting abdominal pain. Complete review of systems could not be obtained from the patient. Current medications reviewed. PHYSICAL EXAMINATION: An 85-year-old male lying on the bed, awake, alert, oriented x2 to 3, appears to be in no apparent distress. VITALS: Blood pressure is 114/59, pulse is 66, respirations 18, temperature afebrile, pulse ox is 96% on 2 L nasal cannula. HEENT: Atraumatic, normocephalic. Neck is supple, no JVD. CVS: S1, S2 heard, no murmurs, no gallop. LUNGS: Bilateral air entry is present ( ). Lower lobe air entry is decreased and right-sided crackles positive. No wheezing. Nonlabored breathing. Abdomen is soft, nontender. Bowel sounds present. RF TEST ENGINEER: Awake, alert, oriented x3. No focal neurological deficits. Cranial nerves grossly intact. EXTREMITIES: No edema. Pulses palpable bilaterally. No clubbing or cyanosis. PSYCHIATRIC: Cooperative. LABORATORY DATA: WBC 10.8, hemoglobin 12.3, platelets 213. Sodium 143, potassium 3.4, chloride 105, bicarb is 29, BUN 30, creatinine 0.9. Calcium 7.5. Albumin 2.2. Liver enzymes are trending down. IMPRESSION: 1. Acute on chronic congestive heart failure with worsening pleural effusion with systolic dysfunction. 2. Bilateral pneumonia. 3. Recent methicillin-resistant Staphylococcus aureus urinary tract infection status post vancomycin course. 4. Severe hypokalemia, resolved. 5. Acute metabolic encephalopathy secondary to congestive heart failure. 6. Ischemic cardiomyopathy with ejection fraction 20%, status post ICD placement. 7. History of coronary artery disease. 8. History of myocardial infarction. 9. Hypothyroidism. 10. Hypertension. 11. Gastroesophageal reflux disease. 12. History of cerebrovascular accident/transient ischemic attack. 13. History of hemorrhagic cerebrovascular accident. 14. Elevated liver enzymes trending down secondary to hepatic ( ). 15. Hyperbilirubinemia. 16. Mild to moderate protein calorie malnutrition. 17. Morbid obesity. 18. Hypocalcemia. 19. Hypoalbuminemia. 20. Poor oral intake. DISCUSSION AND PLAN: A 85-year-old male admitted to hospital with worsening shortness of breath and weakness generalized. Will continue with the IV diuretics. Lasix increased to q.8 hourly as the blood pressure tolerates and will continue to follow renal function. Continue the current management and continue with the antibiotics. Anticipate discharge to extended-care facility in 1 or 2 days. Discussed with the machine adjuster leader case trim and discussed with the family members today in detail.
--- NOTE | 2016-08-09 13:19 | P.DS ---
Providers Date of admission: 08/03/16 12:31 Expected date of discharge: 08/09/16 Attending physician: Deena Luna Primary care physician: Jarad Valiente [facility] Course: 85-year-old gentleman with known history of congestive heart failure as well as bilateral pneumonia is admitted to the hospital due to hypotension. Patient has a history of systolic heart failure status post AICD placement. Patient was started on IV diuretics. Patient was noted to have abnormal liver enzymes which were attributed to hypotension. Patient improved during the course of his hospitalization. Patient was having cough with productive sputum which was brownish tinged sputum/slightly blood- tinged sputum. However sputum has been decreasing in amount during the course of his hospitalization. On the day of his discharge patient was able to lay flat without any difficulty. Physical exam Lungs good air movement trace crackles at bibasilar posteriorly Heart S1-S2 heard regular rate and rhythm no murmurs appreciated Abdomen soft nontender organomegaly Lower activities no edema noted Discharge diagnoses #1 acute on chronic congestive heart failure with bilateral pleural effusion #2 healthcare acquired pneumonia status post TX #3 recent MRSA UTI status post treatment #4 severe hypokalemia that is resolved #5 acute metabolic encephalopathy which is resolved #6 ischemic cardiomyopathy with ejection fraction 20% #7 history of CAD #8 hypothyroidism # history of hypertension #10 elevated liver enzymes likely secondary to hypotension versus amiodarone use we'll discontinue amiodarone for the time being. Patient Condition at Discharge: Fair Plan - Discharge Summary New Discharge Prescriptions: Doxycycline Hyclate [Vibramycin] 100 mg PO BID #14 cap Furosemide [Lasix] 20 mg PO BID #30 tablet traMADol HCl [Ultram] 50 mg PO Q6H PRN #20 tab PRN Reason: Moderate Pain Discharge Medication List Isosorbide Mononitrate ER [Imdur] 30 mg PO DAILY 08/31/14 [History] Finasteride [Proscar] 5 mg PO DAILY 02/22/15 [History] Famotidine [Pepcid] 20 mg PO DAILY 10/03/15 [History] Melatonin 10 mg PO HS 10/03/15 [History] Nitroglycerin Sl Tabs [Nitrostat] 0.4 mg SL Q5M PRN 10/03/15 [History] Levothyroxine Sodium [Synthroid] 100 mcg PO DAILY 10/04/15 [History] Spironolactone [Aldactone] 25 mg PO DAILY 10/04/15 [History] Tamsulosin HCl [Flomax] 0.4 mg PO HS #0 10/08/15 [Rx] Acetaminophen/Diphenhydramine [Tylenol PM 500-25mg] 2 tab PO HS 04/19/16 [ History] Cyanocobalamin [Vitamin B-12] 500 mcg PO DAILY 04/19/16 [History] Carvedilol [Coreg] 3.125 mg PO BID 08/03/16 [History] Ipratropium-Albuterol Nebulize [Duoneb 0.5 mg-3 mg/3 ml Soln] 3 ml INHALATION RT -TID 08/03/16 [History] Nitrofurantoin Monohyd/M-Cryst [Macrobid] 100 mg PO Q12HR 08/03/16 [History] hydrOXYzine HCL [Atarax] 10 mg PO HS 08/03/16 [History] Doxycycline Hyclate [Vibramycin] 100 mg PO BID #14 cap 08/09/16 [Rx] Famotidine [Pepcid] 20 mg PO BID tab 08/09/16 [Rx] Furosemide [Lasix] 20 mg PO BID #30 tablet 08/09/16 [Rx] traMADol HCl [Ultram] 50 mg PO Q6H PRN #20 tab 08/09/16 [Rx] Follow up Appointment(s)/Referral(s): Jarad Valiente MD [Primary Care Provider] - 1-2 days [facility] Visiting Nurse, [NON-STAFF] - Ambulatory/Diagnostic Orders: Basic Metabolic Panel [LAB.AMB] Time Frame: 3 Days, Location: Determined By Patient Patient Instructions/Handouts: Heart Failure (DC), Pneumonia (DC)
[2016-08-09 14:04] VITALS: PULSE 66
== END 2016-08-09 15:14 | DRG 193 ==
LOC: EC 10:23 → 4MS4W 12:31
PROVIDERS: ADMIT Internal Medicine; ATTEND Internal Medicine
PROC: 3E0234Z Introduction of Serum, Toxoid and Vaccine into Muscle, Percutaneous Approach (ICD-10-PCS; principal; 2016-08-06)
PROC: 3E0234Z Introduction of Serum, Toxoid and Vaccine into Muscle, Percutaneous Approach (ICD-10-PCS; 2016-08-06)
DX: J18.9 Pneumonia, unspecified organism (principal); I50.23 Acute on chronic systolic (congestive) heart failure; G93.41 Metabolic encephalopathy; E44.0 Moderate protein-calorie malnutrition; I95.9 Hypotension, unspecified; R04.2 Hemoptysis; E88.09 Other disorders of plasma-protein metabolism, not elsewhere classified; I11.0 Hypertensive heart disease with heart failure; E83.51 Hypocalcemia; D64.9 Anemia, unspecified; I25.10 Atherosclerotic heart disease of native coronary artery without angina pectoris; I25.5 Ischemic cardiomyopathy; E03.9 Hypothyroidism, unspecified; E87.6 Hypokalemia; R74.8 Abnormal levels of other serum enzymes; T46.2X5A Adverse effect of other antidysrhythmic drugs, initial encounter; E78.5 Hyperlipidemia, unspecified; K21.9 Gastro-esophageal reflux disease without esophagitis; I25.2 Old myocardial infarction; I67.9 Cerebrovascular disease, unspecified; N40.0 Benign prostatic hyperplasia without lower urinary tract symptoms; R53.1 Weakness; K57.90 Diverticulosis of intestine, part unspecified, without perforation or abscess without bleeding; Z86.79 Personal history of other diseases of the circulatory system; Z88.8 Allergy status to other drugs, medicaments and biological substances; Z87.440 Personal history of urinary (tract) infections; Z86.14 Personal history of Methicillin resistant Staphylococcus aureus infection; Z87.891 Personal history of nicotine dependence; Z95.810 Presence of automatic (implantable) cardiac defibrillator; Z86.73 Personal history of transient ischemic attack (TIA), and cerebral infarction without residual deficits; Z82.49 Family history of ischemic heart disease and other diseases of the circulatory system; Z23 Encounter for immunization; Z87.01 Personal history of pneumonia (recurrent); Z91.010 Allergy to peanuts; Z68.22 Body mass index [BMI] 22.0-22.9, adult; Z98.42 Cataract extraction status, left eye; Z98.41 Cataract extraction status, right eye; Z79.2 Long term (current) use of antibiotics; Z79.899 Other long term (current) drug therapy; Y95 Nosocomial condition
CPT/HCPCS: 36415; 51702; 70450; 71010; 71020; 76705; 80048; 80053; 81001; 83735; 83880; 84132; 84484; 85025; 85027; 85610; 85730; 87040; 87086; 93005; 94640; 94760; 96361; 96365; 96367; 99285

== ENCOUNTER 2016-08-17 17:55 | Inpatient (IN) | payer MEDICARE, BC ==
[2016-08-17 19:21] LABS: Anisocytosis Slight; Basophils # (A) 0.1 k/uL (0-0.2); Basophils % (A) 1 %; CH 29.8; CHCM 29.8; Eosinophils # (A) 0.8 k/uL (0-0.7); Eosinophils % (A) 8 %; HCT 47.7 % (39.0-53.0); HDW 2.49; HGB 14.1 gm/dL (13.0-17.5); Hypochromasia Marked; Luc # (Auto) 0.15; Luc % (Auto) 1; Lymphocytes # (A) 0.8 k/uL (1.0-4.8); Lymphocytes % (A) 8 %; MCH 29.8 pg (25.0-35.0); MCHC 29.6 g/dL (31.0-37.0); MCV 100.7 fL (80.0-100.0); Macrocytosis Slight; Mean Platelet Volume 8.6; Monocytes # (A) 0.5 k/uL (0-1.0); Monocytes % (A) 4 %; Neutrophils # (A) 8.2 k/uL (1.3-7.7); Neutrophils % (A) 78 %; RBC 4.74 m/uL (4.30-5.90); RDW 16.7 % (11.5-15.5); WBC 10.6 k/uL (3.8-10.6); WBC (Perox) 10.55
[2016-08-17 19:28] LABS: ALT 67 U/L (21-72); AST 50 U/L (17-59); Alkaline Phosphatase 168 U/L (38-126); Anion Gap 11 mmol/L; Blood Urea Nitrogen 27 mg/dL (9-20); Calcium 8.4 mg/dL (8.4-10.2); Carbon Dioxide 26 mmol/L (22-30); Chloride 102 mmol/L (98-107); Glucose 105 mg/dL (74-99); Non-African American GFR(MDRD) 57 (>60 ml/min/1.73 sqM); Potassium 4.4 mmol/L (3.5-5.1); Sodium 139 mmol/L (137-145); Total Bilirubin 3.3 mg/dL (0.2-1.3); Total Protein 6.8 g/dL (6.3-8.2)
[2016-08-17 19:29] LABS: INR 1.2 (<1.1); Partial Thromboplastin Time 23.1 sec (22.0-30.0); Prothrombin Time 12.2 sec (9.0-12.0)
--- NOTE | 2016-08-17 19:55 | XR ---
EXAMINATION TYPE: XR chest 1V portable DATE OF EXAM: 08/17/2016 7:13 PM COMPARISON: August 07, 2016 HISTORY: Pain TECHNIQUE: Single frontal view of the chest is obtained - AP upright. FINDINGS: Cardiac pacemaker and EKG leads noted. The left hemidiaphragm remains completely silhouett ed, consistent with airlessness throughout the left lower lobe. However, there does appear to be some what improved inflation in the left lung parenchyma. On the right, the lung is demonstrating improved inflation when compared to the prior study. There re shaquille subtle consolidative opacity in the right perihilar position, within the right upper lobe. The mediastinum is midline. Cardiac silhouette remains mildly enlarged, similar. No pneumothorax or other abnormal gas collections. It is noted that gas-distended colon is situated underneath the right hemidiaphragm. IMPRESSION: IMPROVED LUNG INFLATION COMPARED TO THE PRIOR STUDY OF AUGUST 07, 2016.
--- NOTE | 2016-08-17 19:59 | CT ---
EXAMINATION TYPE: CT brain wo con DATE OF EXAM: 08/17/2016 7:53 PM COMPARISON: CT August 03, 2016 HISTORY: Per patient family episode of unresponsiveness today CT DLP: 1183 mGycm. Automated exposure control for dose reduction was used. FINDINGS: The previously seen bilateral frontal and parietal geographic encephalomalacia pattern is r edemonstrated without interval change. There is no acute intracranial hemorrhage, mass effect, or midline shift identified. There is no def inite new attenuation defect. The ventricles and sulci are within normal limits in size. The globes are intact and the visualized sinuses are clear. IMPRESSION: No definite acute process; stable appearance when compared to the August 03, 2016 CT examination.
--- NOTE | 2016-08-17 20:34 | ED ---
Altered Mental Status HPI - General Source: family (), EMS Mode of arrival: EMS Limitations: altered mental status - History of Present Illness MD Complaint: decreased responsiveness Severity: moderate <Efrain Yoder - Last Filed: 08/17/16 20:29> <Dayday Powell - Last Filed: 08/17/16 20:55> - General Chief Complaint: Altered Mental Status Stated Complaint: Syncopal Episode Time Seen by Provider: 08/17/16 18:38 - History of Present Illness Initial Comments: This patient is an 85-year-old man who presents with having had an episode of decreased responsiveness. The patient does not recall the episode and is not able to describe what is going on. When directly asked she does not really have any complaints. The patient's states that she was visiting him today and while he was seated he appeared to fall asleep and then she was not able to arouse him she states for a number of minutes. (Efrain Yoder) - Related Data Home Medications Medication Instructions Recorded Confirmed Isosorbide Mononitrate ER [Imdur] 30 mg PO DAILY 08/31/14 08/17/16 Finasteride [Proscar] 5 mg PO DAILY 02/22/15 08/17/16 Melatonin 10 mg PO HS 10/03/15 08/17/16 Nitroglycerin Sl Tabs [Nitrostat] 0.4 mg SUBLINGUAL Q5M PRN 10/03/15 08/17/16 Levothyroxine Sodium [Synthroid] 100 mcg PO DAILY 10/04/15 08/17/16 Acetaminophen/Diphenhydramine 2 tab PO HS PRN 04/19/16 08/17/16 [Tylenol PM 500-25mg] Cyanocobalamin [Vitamin B-12] 500 mcg PO DAILY 04/19/16 08/17/16 Carvedilol [Coreg] 3.125 mg PO BID@0800,1700 08/03/16 08/17/16 Ipratropium-Albuterol Nebulize 3 ml INHALATION RT-TID 08/03/16 08/17/16 [Duoneb 0.5 mg-3 mg/3 ml Soln] Nitrofurantoin Monohyd/M-Cryst 100 mg PO BID 08/03/16 08/17/16 [Macrobid] hydrOXYzine HCL [Atarax] 10 mg PO HS PRN 08/03/16 08/17/16 Acetaminophen [Tylenol 8 Hour] 650 mg PO BID 08/17/16 08/17/16 Famotidine [Pepcid] 20 mg PO BID@0800,1700 08/17/16 08/17/16 Furosemide [Lasix] 20 mg PO BID@0600,1400 08/17/16 08/17/16 Lactose-Reduced Food [Ensure Plus] 237 ml PO TID 08/17/16 08/17/16 Mirtazapine [Remeron] 15 mg PO HS 08/17/16 08/17/16 Spironolactone [Aldactone] 25 mg PO DAILY 08/17/16 08/17/16 traMADol HCl [Ultram] 50 mg PO Q6H PRN 08/17/16 08/17/16 Previous Rx's Medication Instructions Recorded Tamsulosin HCl [Flomax] 0.4 mg PO HS #0 10/08/15 Allergies Allergy/AdvReac Type Severity Reaction Status Date / Time lisinopril [From Zestril] Allergy Unknown Verified 08/17/16 18:06 peanut Allergy Unknown Verified 08/17/16 18:06 No blood thinners AdvReac Severe Unknown Uncoded 08/17/16 18:06 Review of Systems ROS Other: All systems not noted in ROS Statement are negative. Limitations: ROS unobtainable due to patients medical condition Constitutional: Reports: weakness Eyes: Denies: vision change Respiratory: Denies: cough, dyspnea Cardiovascular: Reports: syncope. Denies: chest pain, palpitations Gastrointestinal: Denies: abdominal pain, vomiting, diarrhea Genitourinary: Denies: dysuria Musculoskeletal: Denies: back pain Neurological: Reports: weakness (Generalized). Denies: headache, paresthesias <Efrain Yoder - Last Filed: 08/17/16 20:29> ROS Other: All systems not noted in ROS Statement are negative. <Dayday Powell - Last Filed: 08/17/16 20:55> ROS Statement: Those systems with pertinent positive or pertinent negative responses have been documented in the HPI. Past Medical History Past Medical History: Coronary Artery Disease (CAD), Chest Pain / Angina, Heart Failure, CVA/TIA, Eye Disorder, Hyperlipidemia, Hypertension, Myocardial Infarction ([place]), Osteoarthritis (OA), Pneumonia, Prostate Disorder, Renal Disease Additional Past Medical History / Comment(s): Ischemic cardiomyopathy, CHF with EF 20%, nonsustained Vtach, CVAs x 2 with one hemorrhagic, 2 TIAs, Chronic kidney disease stage III, R lower lobe pneumonia, UTIs, hypothyroid, BPH, divericulosis, back pain, lumbar radiculopathy, anemia, sinus problems, detached retina with surgery. Last Myocardial Infarction Date:: 09/06/2014 History of Any Multi-Drug Resistant Organisms: MRSA Date of last positivie culture/infection: 02/22/15 MDRO Source:: Urine Past Surgical History: AICD, Heart Catheterization, Pacemaker Additional Past Surgical History / Comment(s): Bi VICD, detached retina-unsure which eye, cataracts bilaterally , aortic stent, colonoscopy. Past Anesthesia/Blood Transfusion Reactions: No Reported Reaction Type of Cardiac Device: AICD Device Placement Date:: 09/06/2012 Past Psychological History: No Psychological Hx Reported Additional Psychological History / Comment(s): Pt has adult children (son and rudi-in-law) that reside with him. He ambulates with a walker. He no longer drives-family take him to appts. He has [employer] aide that showers pt twice a week. He is a [employer] . He is on a low sodium diet. Smoking Status: Former smoker Past Alcohol Use History: Rare Additional Past Alcohol Use History / Comment(s): Pt smoked from 1953 until about 1982. He was a pack and a half a day smoker. Past Drug Use History: None Reported - Past Family History Mother Family Medical History: Dementia Father Family Medical History: Myocardial Infarction ([place]) Additional Family Medical History / Comment(s): Father of a [place] in his 70's. <DarylEfrain koch - Last Filed: 08/17/16 20:29> General Exam Limitations: altered mental status General appearance: alert, in no apparent distress Head exam: Present: atraumatic, normocephalic Eye exam: Present: normal appearance, PERRL, EOMI. Absent: scleral icterus, conjunctival injection ENT exam: Present: mucous membranes dry Neck exam: Present: normal inspection, full ROM Respiratory exam: Present: rales (Bilateral bases). Absent: respiratory distress, wheezes, rhonchi, stridor, decreased breath sounds, prolonged expiratory Cardiovascular Exam: Present: regular rate, normal rhythm, normal heart sounds. Absent: systolic murmur, diastolic murmur, rubs, gallop GI/Abdominal exam: Present: soft. Absent: tenderness, guarding, rebound, mass Extremities exam: Present: normal inspection, normal capillary refill. Absent: pedal edema, calf tenderness Back exam: Absent: CVA tenderness (R), CVA tenderness (L) Neurological exam: Present: alert, CN II-XII intact. Absent: oriented X3 ( Patient is oriented to person and recognizes she is in the healthcare facility but could not state the date), motor sensory deficit Skin exam: Present: warm, dry, intact, normal color. Absent: rash <Efrain Yoder - Last Filed: 08/17/16 20:29> Course <Efrain Yoder - Last Filed: 08/17/16 20:29> <Dayday Powell - Last Filed: 08/17/16 20:55> Vital Signs 08/17/16 08/17/16 08/17/16 18:09 18:37 19:18 Temperature 98.7 F Pulse Rate 57 L 54 L 56 L Respiratory 18 Rate Blood Pressure 107/57 106/58 112/55 O2 Sat by Pulse 93 L 94 L 95 Oximetry 08/17/16 19:57 Temperature Pulse Rate 58 L Respiratory Rate Blood Pressure 108/56 O2 Sat by Pulse 95 Oximetry - Reevaluation(s) Reevaluation #1: 08/17/16 20:42 Paced rhythm at 56. IN 156. QRS 176. QT 626. QTc 406. [place] indeterminate. Wide-complex QRS. No acute ST change. (Dayday Powell) Medical Decision Making - Lab Data Result diagrams: 08/17/16 19:11 08/17/16 19:11 <Efrain Yoder - Last Filed: 08/17/16 20:29> - Lab Data Result diagrams: 08/17/16 19:11 08/17/16 19:11 - Radiology Data Radiology results: report reviewed (Computed tomography scan of the brain shows no acute process.), image reviewed (Chest x-ray shows no acute process.) <Dayday Powell - Last Filed: 08/17/16 20:55> - Medical Decision Making Patient is an 85-year-old man who presents after having had an episode of unresponsiveness. He currently is without complaints other than the fact that he is feeling some generalized weakness and fatigue. No focal neurologic deficit on arrival. Signed out pending the remainder of his workup. (Efrain Yoder) Patient reevaluated and resting comfortably in bed. Patient symptom-free at this time. Patient and family updated on results and plan. Case was discussed in detail with Dr. wells, who will admit for Dr. Valiente. (Dayday Powell) - Lab Data Lab Results 08/17/16 08/17/16 08/17/16 Range/Units 19:11 19:11 19:11 WBC 10.6 (3.8-10.6) k/uL RBC 4.74 (4.30-5.90) m/uL Hgb 14.1 (13.0-17.5) gm/dL Hct 47.7 (39.0-53.0) % MCV 100.7 H (80.0-100.0) fL MCH 29.8 (25.0-35.0) pg MCHC 29.6 L (31.0-37.0) g/dL RDW 16.7 H (11.5-15.5) % Plt Count 205 (150-450) k/uL Neutrophils % 78 % Lymphocytes % 8 % Monocytes % 4 % Eosinophils % 8 % Basophils % 1 % Neutrophils # 8.2 H (1.3-7.7) k/uL Lymphocytes # 0.8 L (1.0-4.8) k/uL Monocytes # 0.5 (0-1.0) k/uL Eosinophils # 0.8 H (0-0.7) k/uL Basophils # 0.1 (0-0.2) k/uL Hypochromasia Marked Anisocytosis Slight Macrocytosis Slight PT 12.2 H (9.0-12.0) sec INR 1.2 (<1.1) APTT 23.1 (22.0-30.0) sec Sodium 139 (137-145) mmol/L Potassium 4.4 (3.5-5.1) mmol/L Chloride 102 (98-107) mmol/L Carbon Dioxide 26 (22-30) mmol/L Anion Gap 11 mmol/L BUN 27 H (9-20) mg/dL Creatinine 1.20 (0.66-1.25) mg/dL Est GFR (MDRD) Af Amer >60 (>60 ml/min/1.73 sqM) Est GFR (MDRD) Non-Af 57 (>60 ml/min/1.73 sqM) Glucose 105 H (74-99) mg/dL Calcium 8.4 (8.4-10.2) mg/dL Total Bilirubin 3.3 H (0.2-1.3) mg/dL AST 50 (17-59) U/L ALT 67 (21-72) U/L Alkaline Phosphatase 168 H (38-126) U/L Ammonia (<30) umol/L Troponin I (0.000-0.034) ng/mL Total Protein 6.8 (6.3-8.2) g/dL Albumin 3.0 L (3.5-5.0) g/dL 08/17/16 08/17/16 Range/Units 19:11 19:11 WBC (3.8-10.6) k/uL RBC (4.30-5.90) m/uL Hgb (13.0-17.5) gm/dL Hct (39.0-53.0) % MCV (80.0-100.0) fL MCH (25.0-35.0) pg MCHC (31.0-37.0) g/dL RDW (11.5-15.5) % Plt Count (150-450) k/uL Neutrophils % % Lymphocytes % % Monocytes % % Eosinophils % % Basophils % % Neutrophils # (1.3-7.7) k/uL Lymphocytes # (1.0-4.8) k/uL Monocytes # (0-1.0) k/uL Eosinophils # (0-0.7) k/uL Basophils # (0-0.2) k/uL Hypochromasia Anisocytosis Macrocytosis PT (9.0-12.0) sec INR (<1.1) APTT (22.0-30.0) sec Sodium (137-145) mmol/L Potassium (3.5-5.1) mmol/L Chloride (98-107) mmol/L Carbon Dioxide (22-30) mmol/L Anion Gap mmol/L BUN (9-20) mg/dL Creatinine (0.66-1.25) mg/dL Est GFR (MDRD) Af Amer (>60 ml/min/1.73 sqM) Est GFR (MDRD) Non-Af (>60 ml/min/1.73 sqM) Glucose (74-99) mg/dL Calcium (8.4-10.2) mg/dL Total Bilirubin (0.2-1.3) mg/dL AST (17-59) U/L ALT (21-72) U/L Alkaline Phosphatase (38-126) U/L Ammonia <9 (<30) umol/L Troponin I 0.014 (0.000-0.034) ng/mL Total Protein (6.3-8.2) g/dL Albumin (3.5-5.0) g/dL Disposition <Efrain Yoder - Last Filed: 08/17/16 20:29> <Dayday Powell - Last Filed: 08/17/16 20:55> Clinical Impression: Syncope Disposition: ADMITTED IP TO THIS HOSP Referrals: Jarad Valiente MD [Primary Care Provider] - 1-2 days
[2016-08-17] MEDS ORDERED: NALOXONE 0.4 MG/ML 1 ML VIAL IV PRN (20:43)
[2016-08-17] MEDS ORDERED: SODIUM CHLORIDE 0.9% 1,000 ML IV SCH (21:00)
[2016-08-18 02:34] LABS: Creatine Kinase MB 0.7 ng/mL (0.0-2.4); Troponin I 0.016 ng/mL (0.000-0.034)
[2016-08-18] MEDS ORDERED: hydrOXYzine HCL 10 MG TAB PO PRN (06:36)
[2016-08-18] MEDS ORDERED: traMADol 50 MG TAB PO PRN (06:36)
[2016-08-18] MEDS ORDERED: NITROGLYCERIN SL TABS 0.4 MG TAB SUBLINGUAL PRN (06:36)
[2016-08-18 07:15] LABS: Troponin I 0.02 ng/mL (0.000-0.034)
[2016-08-18] MEDS ORDERED: ACETAMINOPHEN TAB 325 MG TAB PO SCH (09:00)
[2016-08-18] MEDS ORDERED: NITROFURANTOIN MONOHYD/M-CRYST 100 MG CAP PO SCH (09:00)
[2016-08-18] MEDS ORDERED: NON-FORMULARY DRUG (Lactose-Reduced Food [Ensure Plus] 237 ML) PO SCH (09:00)
[2016-08-18] MEDS: IPRATROPIUM-ALBUTEROL 3 ML NEB INHALATION SCH ×3 (11:40→20:51)
[2016-08-18] MEDS: LEVOTHYROXINE 100 MCG TAB PO SCH (12:25)
[2016-08-18] MEDS: FAMOTIDINE 20 MG TAB PO SCH ×2 (12:25→16:31)
[2016-08-18] MEDS: CARVEDILOL 3.125 MG TAB PO SCH ×2 (12:25→16:31)
[2016-08-18] MEDS: CYANOCOBALAMIN 500 MCG TAB PO SCH (12:25)
[2016-08-18] MEDS: ISOSORBIDE MONONITRATE ER 30 MG TAB.ER.24H PO SCH (12:25)
[2016-08-18] MEDS: FINASTERIDE 5 MG TAB PO SCH (12:26)
--- NOTE | 2016-08-18 13:05 | P.CRDCN ---
History of Present Illness Consult date: 08/18/16 Reason for Consult (text): Syncope History of present illness: This is a confused 85-year-old gentleman who presented to the emergency department who was noted to have an episode of decreased responsiveness by his . Patient does have a history of dementia and is a current resident of [facility]. The patient is a poor historian and is unable to recall the events surrounding his admission. According to medical records and ER notes, the patient's said she was visiting him and while he was seated he appeared to fall asleep and she was unable to arouse him for a number of minutes. Upon presentation CT of the brain showed no definite acute process, stable appearance compared to 08/03/2016. Patient underwent chest x-ray that showed improved lung flexion compared to previous study and EKG showed biventricular paced rhythm. Upon examination this morning, patient is resting in bed comfortably. He is minimally responsive verbally. He denies current complaints at this time. Past Medical History Past Medical History: Coronary Artery Disease (CAD), Chest Pain / Angina, Heart Failure, CVA/TIA, Dementia, Eye Disorder, Hyperlipidemia, Hypertension, Myocardial Infarction ([place]), Osteoarthritis ([place]), Pneumonia, Prostate Disorder, Renal Disease, Thyroid Disorder Additional Past Medical History / Comment(s): Ischemic cardiomyopathy, CHF with EF 20%, nonsustained Vtach, CVAs x 2 with one hemorrhagic, 2 TIAs, Chronic kidney disease stage III, R lower lobe pneumonia, UTIs, hypothyroid, BPH, divericulosis, back pain, lumbar radiculopathy, anemia, sinus problems, detached retina with surgery. Last Myocardial Infarction Date:: 09/06/2014 History of Any Multi-Drug Resistant Organisms: MRSA Date of last positivie culture/infection: 07/15/16 MDRO Source:: Urine Past Surgical History: AICD, Heart Catheterization With Stent, Pacemaker Additional Past Surgical History / Comment(s): Bi VICD, detached retina-unsure which eye, cataracts bilaterally , aortic stent, colonoscopy, aortic aneurysm. Past Anesthesia/Blood Transfusion Reactions: No Reported Reaction Date of Last Stent Placement:: 2002 Type of Cardiac Device: AICD Device Placement Date:: 09/06/2012 Past Psychological History: No Psychological Hx Reported Additional Psychological History / Comment(s): Pt has adult children (son and rudi-in-law) that reside with him. He ambulates with 2 assist. He no longer drives-family take him to appts. He has VNA aide that showers pt twice a week. He is a [employer] . He is on a low sodium diet. Smoking Status: Former smoker Past Alcohol Use History: Rare Additional Past Alcohol Use History / Comment(s): Pt smoked from 1953 until about 1982. He was a pack and a half a day smoker. Past Drug Use History: None Reported - Past Family History Mother Family Medical History: Dementia Father Family Medical History: Myocardial Infarction ([place]) Additional Family Medical History / Comment(s): Father of a [place] in his 70's. Medications and Allergies Home Medications Medication Instructions Recorded Confirmed Type Isosorbide Mononitrate ER [Imdur] 30 mg PO DAILY 08/31/14 08/17/16 History Finasteride [Proscar] 5 mg PO DAILY 02/22/15 08/17/16 History Melatonin 10 mg PO HS 10/03/15 08/17/16 History Nitroglycerin Sl Tabs [Nitrostat] 0.4 mg SUBLINGUAL Q5M PRN 10/03/15 08/17/16 History Levothyroxine Sodium [Synthroid] 100 mcg PO DAILY 10/04/15 08/17/16 History Acetaminophen/Diphenhydramine 2 tab PO HS PRN 04/19/16 08/17/16 History [Tylenol PM 500-25mg] Cyanocobalamin [Vitamin B-12] 500 mcg PO DAILY 04/19/16 08/17/16 History Carvedilol [Coreg] 3.125 mg PO BID@0800,1700 08/03/16 08/17/16 History Ipratropium-Albuterol Nebulize 3 ml INHALATION RT-TID 08/03/16 08/17/16 History [Duoneb 0.5 mg-3 mg/3 ml Soln] Nitrofurantoin Monohyd/M-Cryst 100 mg PO BID 08/03/16 08/17/16 History [Macrobid] hydrOXYzine HCL [Atarax] 10 mg PO HS PRN 08/03/16 08/17/16 History Acetaminophen [Tylenol 8 Hour] 650 mg PO BID 08/17/16 08/17/16 History Famotidine [Pepcid] 20 mg PO BID@0800,1700 01/12/17 01/12/17 History Furosemide [Lasix] 20 mg PO BID@0600,1400 08/17/16 08/17/16 History Lactose-Reduced Food [Ensure Plus] 237 ml PO TID 08/17/16 08/17/16 History Mirtazapine [Remeron] 15 mg PO HS 08/17/16 08/17/16 History Spironolactone [Aldactone] 25 mg PO DAILY 08/17/16 08/17/16 History traMADol HCl [Ultram] 50 mg PO Q6H PRN 08/17/16 08/17/16 History Allergies Allergy/AdvReac Type Severity Reaction Status Date / Time lisinopril [From Zestril] Allergy Unknown Verified 08/17/16 18:06 peanut Allergy Unknown Verified 08/17/16 18:06 No blood thinners AdvReac Severe Unknown Uncoded 08/17/16 18:06 Physical Exam Vitals: Vital Signs Temp Pulse Pulse Resp BP BP Pulse Ox 08/18/16 11:58 67 08/18/16 11:43 66 08/18/16 08:00 66 20 120/67 95 08/18/16 04:00 97.2 F L 67 16 105/58 94 L 08/18/16 00:00 97.8 F 67 16 94/53 93 L 08/17/16 21:17 97.0 F L 58 L 16 89/53 93 L 08/17/16 21:16 98 F 58 L 16 103/52 98 Intake and Output 08/17/16 08/18/16 08/18/16 22:59 06:59 14:59 Other: Voiding Method Diaper Diaper # Voids 1 1 # Bowel Movements 1 1 1 Weight 90.718 kg 91.5 kg PHYSICAL EXAMINATION: HEENT: Head is atraumatic, normocephalic. Pupils equal, round. Neck is supple. There is no elevated jugular venous pressure. Mucous membranes are dry. HEART EXAMINATION: Heart sounds regular, S1 and S2 with systolic murmur. CHEST EXAMINATION: Lungs feel diminished air entry bilaterally. No chest wall tenderness is noted on palpation or with deep breathing. ABDOMEN: Soft, nontender. Bowel sounds are heard. No organomegaly noted. EXTREMITIES: 1+ peripheral pulses with no evidence of peripheral edema and no calf tenderness noted. NEUROLOGIC patient is awake and alert, confused. . Results 08/17/16 19:11 08/17/16 19:11 Cardiac Enzymes 08/18/16 08/18/16 Range/Units 01:28 06:06 CK-MB (CK-2) 0.7 1.0 (0.0-2.4) ng/mL Troponin I 0.016 0.020 (0.000-0.034) ng/mL Current Medications Generic Name Dose Route Start Last Admin Trade Name Freq PRN Reason Stop Dose Admin Acetaminophen 650 mg 08/18/16 09:00 Tylenol Tab PO BID JOSÉ ANTONIO Albuterol/Ipratropium 3 ml 08/18/16 08:00 08/18/16 11:40 Duoneb 0.5 Mg-3 Mg/3 Ml Soln INHALATION 3 ml RT-TID JOSÉ ANTONIO Administration Carvedilol 3.125 mg 08/18/16 08:00 Coreg PO BID@0800,1700 [facility] Cyanocobalamin 500 mcg 08/18/16 12:00 Vitamin B-12 PO DAILY@1200 [facility] Famotidine 20 mg 08/18/16 08:00 Pepcid PO BID@0800,1700 [facility] Finasteride 5 mg 08/18/16 09:00 Proscar PO DAILY JOSÉ ANTONIO Furosemide 20 mg 08/18/16 14:00 Lasix PO BID@0600,1400 [facility] Hydroxyzine HCl 10 mg 08/18/16 06:36 Atarax PO HS PRN Insomnia Sodium Chloride 1,000 mls @ 20 mls/hr 08/17/16 21:00 08/17/16 22:21 Saline 0.9% IV Not Given .Q24H [facility] Isosorbide Mononitrate 30 mg 08/18/16 09:00 Imdur PO DAILY [facility] Levothyroxine Sodium 100 mcg 08/18/16 07:00 Synthroid PO DAILY@0630 [facility] Melatonin 10 mg 08/18/16 21:00 Melatonin PO HS JOSÉ ANTONIO Naloxone HCl 0.2 mg 08/17/16 20:43 Narcan IV Q2M PRN Opioid Reversal Nitrofurantoin Macrocrystals 100 mg 08/18/16 09:00 Macrobid PO BID [facility] Nitroglycerin 0.4 mg 08/18/16 06:36 Nitrostat SUBLINGUAL Q5M PRN Chest Pain Spironolactone 25 mg 08/18/16 09:00 Aldactone PO DAILY JOSÉ ANTONIO Tamsulosin HCl 0.4 mg 08/18/16 21:00 Flomax PO HS JOSÉ ANTONIO Tramadol HCl 50 mg 08/18/16 06:36 Ultram PO Q6H PRN Pain Intake and Output 08/17/16 08/18/16 08/18/16 22:59 06:59 14:59 Other: Voiding Method Diaper Diaper # Voids 1 1 # Bowel Movements 1 1 1 Weight 90.718 kg 91.5 kg EKG Interpretations (text) Biventricular paced rhythm Assessment and Plan Plan: Assessment and plan #1 decreased level of consciousness #2 chronic systolic heart failure, last known ejection fraction 25% #3 ischemic cardiomyopathy, BiV ICD in place #4 dementia #5 dehydration From cardiology standpoint, we'll obtain 2-D echo with Doppler. We will have defibrillator interrogated to assess for arrhythmias causing decreased level of consciousness. Attempt to hydrate the patient with IV fluids however patient has been uncooperative and pulling out IV lines. Further recommendations to follow. [employer]CISION [employer]SEMBLY INSPECTOR note has been reviewed, I agree with a documented findings and plan of care. Patient was seen and examined.
[2016-08-18] MEDS ORDERED: FUROSEMIDE 20 MG TAB PO SCH (14:00)
[2016-08-18] MEDS ORDERED: Acetaminophen-Codeine 300-30mg TAB PO PRN (15:24)
[2016-08-18] MEDS: SODIUM CHLORIDE 0.9% 1,000 ML IV SCH (16:30)
[2016-08-18] MEDS: SPIRONOLACTONE 25 MG TAB PO SCH (16:31)
[2016-08-18] MEDS: ASPIRIN 81 MG CHEW PO SCH (16:32)
--- NOTE | 2016-08-18 17:57 | HP ---
DATE OF ADMISSION: 08/17/2016 PRESENTING COMPLAINT: Facial asymmetry. HISTORY OF PRESENTING COMPLAINT: This is an 85-year-old patient with rather extensive medical history who is a resident of [facility]. Patient's family doctor Dr. Valiente. Patient's chronic stable medical conditions include GERD, congestive heart failure, ejection fraction 20-25%, secondary pulmonary hypertension, hypothyroid, essential hypertension. The patient also has a pacemaker. Patient's family at the bedside. When the daughter was visiting the patient, patient slumped over the face and became asymmetrical and out for a few seconds and then he came back up, but overall the patient has been losing weight, decreased appetite. Feels tired and rundown. Has hardly been getting out of bed. Patient also was treated with doxycycline antibiotics at [facility]. REVIEW OF SYSTEMS: CONSTITUTIONAL: Weak, tired, loss of appetite, weight loss. HEENT: Decreased hearing. RESPIRATORY: None. CARDIOVASCULAR: Chest pain. GASTROINTESTINAL: None. GENITOURINARY: Decreased urine output. MUSCULOSKELETAL: Pain in the joints. Dermatological: None. HEMATOLOGICAL: None. LYMPHATIC: None. PSYCHIATRY: Appears depressed -appearing. NEUROLOGICAL: Denies weakness. Past medical history of GERD, CHF; ejection fraction 20 to 25%; nonsustained ventricular tachycardia, secondary pulmonary hypertension, bladder outflow obstruction, hypothyroid, essential hypertension. PAST SURGICAL HISTORY: Cardiac stent, permanent pacemaker. SOCIAL HISTORY: Resident of [facility]. Ex-smoker. No alcohol. FAMILY HISTORY: Myocardial infarction. ALLERGIES: LISINOPRIL AND PEANUTS. HOME MEDICATIONS: 1. Ultram 50 mg p.o. q.6h p.r.n. 2. Atarax 10 mg p.o. q.h.s. p.r.n. 3. Flomax 0.4 mg p.o. q.h.s. 4. Aldactone 25 mg p.o. daily. 5. Nitrostat 0.4 sublingual q.5 p.r.n. 6. Macrobid 10 mg p.o. b.i.d. 7. Remeron 50 mg p.o. q.h.s. 8. Melatonin 10 mg q.h.s. 9. Synthroid 100 mcg p.o. daily. 10. Ensure Plus one can p.o. t.i.d. 11. Imdur ER 30 mg p.o. daily. 12. ( ) t.i.d. 13. Lasix 20 mg b.i.d. 14. Proscar 5 mg p.o. daily. 15. Pepcid 20 mg p.o. b.i.d. 16. Vitamin B12 500 mcg a day. 17. Coreg 3.125 p.o. b.i.d. 18. Tylenol PM 2 tablets p.o. q.h.s. p.r.n. PHYSICAL EXAMINATION: Vital signs on presentation: Temperature 98.7, pulse 57, respiratory rate 18, blood pressure 107/57, pulse ox 93% on room air. GENERAL APPEARANCE: Thin build, sitting up, tired, tired, lethargic appearing. EYES: Pupils equal. Conjunctivae are pale. HEENT: External appearance of nose and ears normal. Oral cavity dry mucous membranes. NECK: JVD not raised. Mass not palpable. RESPIRATORY: Effort normal. Lungs are clear. CARDIOVASCULAR: First and second sounds normal. No edema. ABDOMEN: Soft, nontender. Liver and spleen not palpable. LYMPHATIC: No lymph nodes palpable in neck or axillae. PSYCHIATRY: Depressed, awake, able to answer some simple questions. He knows that he is in the hospital. Knows the year. INVESTIGATIONS: White count 10.6, hemoglobin 14.1, potassium 4.4. BUN 27, creatinine 1.20, calcium 8.4, AST and ALT ( ) 1317, now down to normal. Albumin 3.10. CT scan of the brain atrophy with old infarct. Chest x-ray shows a pacemaker, left-sided pleural effusion. ASSESSMENT: 1. Possible transient ischemic attack with patient slumping and facial asymmetry and then getting corrected on its own. 2. Clinically dehydrated. Patient is on diuretics, oral intake has been poor. BUN is elevated and I relatively over the last 2 weeks patient creatinine has been up from 1.8 to 1.2 with change of 0.4. The patient muscle mass is less and hence this could be a form of acute renal failure. 3. Poor appetite. Could be from recent urinary tract infection and also patient being on antibiotics. 4. Chronic bladder outflow obstruction. 5. Chronic congestive heart failure from systolic dysfunction; ejection fraction 20-25%. 6. Gastroesophageal reflux disease. 7. Hypothyroidism, need to rule out over replacement, given significant amount of dose patient is on. 8. Benign prostatic hypertrophy. 9. Chronic obstructive pulmonary disease. 10. Biventricular AICD. 11. Possible depression. 12. Recent gallbladder sludge on ultrasound. 13. Protein calorie malnutrition. The patient's albumin is slow. Muscle wasting is there and patient being more and more weak. 14. Medical debility, multifactorial. 15. Left pleural effusion probably from chronic congestive heart failure. PLAN: At this point, we will cut back on patient's diuretics. We will very gently hydrate the patient. Stop patient Macrobid. Repeat UA, also check patient's FT4 TSH to see if the patient over replaced and also start the patient Lexapro so we can perk him up. We will get a surgical opinion about the gallbladder sixe, the patient has no right upper quadrant tenderness. Care was discussed with the patient's family at the bedside. Overall prognosis is guarded. Also we will stop patient's Remeron. Also stop the Atarax and Tylenol PM, too many antihistaminics in place and that could be contributing to his getting weak and tired.
[2016-08-18 18:59] LABS: Appearance,Urine Clear (Clear); Bilirubin,Urine Negative (Negative); Glucose,Urine (UA) Negative (Negative); Ketones,Urine Negative (Negative); Leukocyte Esterase,Urine Negative (Negative); Nitrite,Urine Negative (Negative); PH, Urine 6.5 (5.0-8.0); Protein,Urine Negative (Negative); Specific Gravity,Urine 1.011 (1.001-1.035); UA Billing (MACRO vs. MICRO) CHEM
[2016-08-18] MEDS: MELATONIN 5 MG TABLET PO SCH (21:08)
[2016-08-18] MEDS: ESCITALOPRAM 10 MG TAB PO SCH (21:08)
[2016-08-18] MEDS: TAMSULOSIN 0.4 MG CAP.ER.24H PO SCH (21:08)
[2016-08-19] MEDS: LEVOTHYROXINE 100 MCG TAB PO SCH (06:13)
[2016-08-19 06:44] LABS: Anisocytosis Slight; Basophils # (A) 0.1 k/uL (0-0.2); Basophils % (A) 1 %; CHCM 30.9; Eosinophils # (A) 0.9 k/uL (0-0.7); Eosinophils % (A) 9 %; HCT 40.2 % (39.0-53.0); HGB 12.3 gm/dL (13.0-17.5); Hypochromasia Slight; Luc # (Auto) 0.15; Luc % (Auto) 1; Lymphocytes # (A) 0.9 k/uL (1.0-4.8); Lymphocytes % (A) 9 %; MCH 29.9 pg (25.0-35.0); MCHC 30.7 g/dL (31.0-37.0); MCV 97.5 fL (80.0-100.0); Macrocytosis Slight; Mean Platelet Volume 8.8; Monocytes # (A) 0.6 k/uL (0-1.0); Monocytes % (A) 6 %; Neutrophils % (A) 75 %; RBC 4.12 m/uL (4.30-5.90); RDW 16.8 % (11.5-15.5); WBC 10.7 k/uL (3.8-10.6); WBC (Perox) 10.57
[2016-08-19 07:05] LABS: ALT 56 U/L (21-72); AST 39 U/L (17-59); Alkaline Phosphatase 115 U/L (38-126); Anion Gap 9 mmol/L; Blood Urea Nitrogen 22 mg/dL (9-20); Calcium 7.9 mg/dL (8.4-10.2); Carbon Dioxide 24 mmol/L (22-30); Chloride 106 mmol/L (98-107); Glucose 73 mg/dL (74-99); Non-African American GFR(MDRD) >60 (>60 ml/min/1.73 sqM); Potassium 3.6 mmol/L (3.5-5.1); Sodium 139 mmol/L (137-145); Total Bilirubin 2.8 mg/dL (0.2-1.3); Total Protein 5.7 g/dL (6.3-8.2)
[2016-08-19] MEDS: IPRATROPIUM-ALBUTEROL 3 ML NEB INHALATION SCH ×3 (09:02→20:42)
[2016-08-19] MEDS: CARVEDILOL 3.125 MG TAB PO SCH ×2 (09:16→17:17)
[2016-08-19] MEDS: FAMOTIDINE 20 MG TAB PO SCH ×2 (09:16→17:17)
[2016-08-19] MEDS: SPIRONOLACTONE 25 MG TAB PO SCH (09:16)
[2016-08-19] MEDS: ISOSORBIDE MONONITRATE ER 30 MG TAB.ER.24H PO SCH (09:16)
[2016-08-19] MEDS: FINASTERIDE 5 MG TAB PO SCH (09:17)
[2016-08-19] MEDS: CYANOCOBALAMIN 500 MCG TAB PO SCH (09:17)
[2016-08-19] MEDS: ASPIRIN 81 MG CHEW PO SCH (09:17)
[2016-08-19] MEDS: SODIUM CHLORIDE 0.9% 1,000 ML IV SCH (09:18)
--- NOTE | 2016-08-19 11:39 | ECHOF ---
Referral Reason:syncope MEASUREMENTS -------- HEIGHT: 182.9 cm WEIGHT: 91.2 kg BP: 104/59 RVIDd: 2.1 cm (< 3.3) IVSd: 0.9 cm (0.6 - 1.1) LVIDd: 7.0 cm (3.9 - 5.3) LVPWd: 0.8 cm (0.6 - 1.1) IVSs: 1.1 cm LVIDs: 6.6 cm LVPWs: 1.3 cm LA Diam: 3.7 cm (2.7 - 3.8) LAESV Index (A-L): 31.75 ml/m Ao Diam: 3.3 cm (2.0 - 3.7) AV Cusp: 1.7 cm (1.5 - 2.6) LA Diam: 3.5 cm (2.7 - 3.8) MV EXCURSION: 9.024 mm (> 18.000) MV EF SLOPE: 71 mm/s (70 - 150) EPSS: 3.2 cm MV E Sage: 0.35 m/s MV DecT: 298 ms MV A Sage: 0.56 m/s MV E/A Ratio: 0.63 RAP: 5.00 mmHg RVSP: 21.06 mmHg FINDINGS -------- Paced rhythm. Pacerwire seen in RV and RA. This was a technically good study. The left ventricle is severely dilated. Left ventricular wall thickness is normal. Overall left ventricular systolic function is severely impaired with, an EF < 20%. The right ventricle is normal in size. LA is midly dilated 29-33ml/m2. The right atrium is normal in size. Aortic valve is trileaflet and is mildly thickened. The mitral valve leaflets are mildly thickened. Mild mitral annular calcification present. There is trace mitral regurgitation. Trace tricuspid regurgitation present. The right ventricular systolic pressure, as measured by Doppler, is 21.06mmHg. Trace/mild (physiologic) pulmonic regurgitation. The aortic root size is normal. There is no pericardial effusion. Moderate Pleural Effusion. CONCLUSIONS -------- 1. Paced rhythm. 2. Aortic valve is trileaflet and is mildly thickened. 3. The mitral valve leaflets are mildly thickened. 4. Mild mitral annular calcification present. 5. There is trace mitral regurgitation. 6. Trace tricuspid regurgitation present. 7. The right ventricular systolic pressure, as measured by Doppler, is 21.06mmHg. 8. Trace/mild (physiologic) pulmonic regurgitation. 9. The aortic root size is normal. 10. There is no pericardial effusion. 11. Moderate Pleural Effusion. 12. Pacerwire seen in RV and RA. 13. This was a technically good study. 14. The left ventricle is severely dilated. 15. Left ventricular wall thickness is normal. 16. Overall left ventricular systolic function is severely impaired with, an EF < 20%. 17. The right ventricle is normal in size. 18. LA is midly dilated 29-33ml/m2. 19. The right atrium is normal in size. CHEMICAL PREPARER: Deejay Dill RDCS
--- NOTE | 2016-08-19 11:55 | P.PN ---
Subjective Principal diagnosis: Syncope, dehydration This is a pleasant 85-year-old gentleman with a known history of dementia. Presented to the emergency department after having an episode of decreased responsiveness witnessed by his . Patient is a resident at [facility]. He is a poor historian and unable to recall the events surrounding his admission. She does have a known history of CHF, CVA, hypertension, CA. He underwent ICD interrogation yesterday that showed no arrhythmias. Patient was found to be dehydrated and diuretics have been decreased and patient has been given 0.9 normal saline at 50 mL an hour. On examination this morning, patient is much more alert. He continues to be confused but is alert to person and place. According to the patient, he is feeling much better today. He denies any complaints of dizziness or lightheadedness and has had no syncope. He underwent echocardiogram yesterday that did show an ejection fraction of less than 20%. Objective - Vital Signs Vital signs: Vital Signs Temp 98 F 08/19/16 08:00 Pulse 78 08/19/16 09:12 Resp 17 08/19/16 08:00 BP 97/47 08/19/16 08:00 Pulse Ox 95 08/19/16 08:00 Intake & Output 08/18/16 08/19/16 08/19/16 18:59 06:59 18:59 Intake Total 320 100 Output Total 300 1 200 Balance 20 -100 Weight 66.5 kg 70.1 kg Intake: IV 100 Sodium Chloride 0.9% 1, 100 000 ml @ 50 mls/hr IV . [facility]H [facility] Rx#:[id number] Oral 320 Output: Urine 300 0 200 Stool 1 Other: Voiding Method Diaper Diaper Indwelling Catheter # Voids 1 # Bowel Movements 1 - Exam PHYSICAL EXAMINATION: HEENT: Head is atraumatic, normocephalic. Pupils equal, round. Neck is supple. There is no elevated jugular venous pressure. Mucous membranes moist. HEART EXAMINATION: Heart sounds regular, S1 and S2 with a systolic murmur. CHEST EXAMINATION: Lungs are clear with diminished air entry bilaterally with no crackles or rhonchi. No chest wall tenderness is noted on palpation or with deep breathing. ABDOMEN: Soft, nontender. Bowel sounds are heard. No organomegaly noted. EXTREMITIES: 1+ peripheral pulses with no evidence of peripheral edema and no calf tenderness noted. NEUROLOGIC patient is awake, alert and oriented to person and place. . - Labs CBC & Chem 7: 08/19/16 06:12 08/19/16 06:12 Labs: Abnormal Lab Results - Last 24 Hours (Table) 08/19/16 08/19/16 Range/Units 06:12 06:12 WBC 10.7 H (3.8-10.6) k/uL RBC 4.12 L (4.30-5.90) m/uL Hgb 12.3 L (13.0-17.5) gm/dL MCHC 30.7 L (31.0-37.0) g/dL RDW 16.8 H (11.5-15.5) % Neutrophils # 8.0 H (1.3-7.7) k/uL Lymphocytes # 0.9 L (1.0-4.8) k/uL Eosinophils # 0.9 H (0-0.7) k/uL BUN 22 H (9-20) mg/dL Glucose 73 L (74-99) mg/dL Calcium 7.9 L (8.4-10.2) mg/dL Total Bilirubin 2.8 H (0.2-1.3) mg/dL Delta Bilirubin 2.0 H (0.0-0.2) mg/dL Total Protein 5.7 L (6.3-8.2) g/dL Albumin 2.3 L (3.5-5.0) g/dL Microbiology - Last 24 Hours (Table) 08/18/16 18:30 Urine Culture - Preliminary Urine,Clean Catch Assessment and Plan Plan: Assessment and plan #1 decreased level of consciousness, improved #2 chronic systolic heart failure, ejection fraction less than 20% #3 ischemic cardiomyopathy, BiV ICD in place #4 dementia #5 dehydration From cardiology standpoint, we will stop IV fluids as patient's oral intake has improved. Discussed with patient and family the importance of maintaining adequate oral intake. We will reassess the need to resume Lasix tomorrow. Further recommendations to follow. [employer] note has been reviewed, I agree with a documented findings and plan of care. Patient was seen and examined.
--- NOTE | 2016-08-19 19:01 | P.GSCN ---
History of Present Illness Consult date: 08/19/16 Reason for Consult: Gallbladder sludge Requesting physician: Tanner Vu History of present illness: 85 yrs old male with multiple comorbid conditions presented with altered mental status. LFTs elevated at presentation. Bilirubin and LFTs are trending down. US showed gallbladder sludge. His comorbid conditions include: Coronary Artery Disease (CAD), Chest Pain / Angina, Heart Failure, CVA/TIA, Dementia, Hyperlipidemia, Hypertension, H/O Myocardial Infarction (IA), Osteoarthritis (OA) Ischemic cardiomyopathy, CHF with EF 20%, nonsustained Vtach, CVAs x 2 with one hemorrhagic, 2 TIAs, Chronic kidney disease stage III, R lower lobe pneumonia, UTIs, hypothyroid, BPH, divericulosis, back pain, lumbar radiculopathy, anemia, sinus problems, detached retina with surgery. Past Medical History Past Medical History: Coronary Artery Disease (CAD), Chest Pain / Angina, Heart Failure, CVA/TIA, Dementia, Eye Disorder, Hyperlipidemia, Hypertension, Myocardial Infarction (IA), Osteoarthritis (OA), Pneumonia, Prostate Disorder, Renal Disease, Thyroid Disorder Additional Past Medical History / Comment(s): Ischemic cardiomyopathy, CHF with EF 20%, nonsustained Vtach, CVAs x 2 with one hemorrhagic, 2 TIAs, Chronic kidney disease stage III, R lower lobe pneumonia, UTIs, hypothyroid, BPH, divericulosis, back pain, lumbar radiculopathy, anemia, sinus problems, detached retina with surgery. Last Myocardial Infarction Date:: 09/06/2014 History of Any Multi-Drug Resistant Organisms: MRSA Year Discovered:: 07/15/16 MDRO Source:: Urine Past Surgical History: AICD, Heart Catheterization With Stent, Pacemaker Additional Past Surgical History / Comment(s): Bi VICD, detached retina-unsure which eye, cataracts bilaterally , aortic stent, colonoscopy, aortic aneurysm. Past Anesthesia/Blood Transfusion Reactions: No Reported Reaction Date of Last Stent Placement:: 2002 Type of Cardiac Device: AICD Device Placement Date:: 09/06/2012 Past Psychological History: No Psychological Hx Reported Additional Psychological History / Comment(s): Pt has adult children (son and rudi-in-law) that reside with him. He ambulates with 2 assist. He no longer drives-family take him to appts. He has [employer] aide that showers pt twice a week. He is a [employer] . He is on a low sodium diet. Smoking Status: Former smoker Past Alcohol Use History: Rare Additional Past Alcohol Use History / Comment(s): Pt smoked from 1953 until about 1982. He was a pack and a half a day smoker. Past Drug Use History: None Reported - Past Family History Mother Family Medical History: Dementia Father Family Medical History: Myocardial Infarction (IA) Additional Family Medical History / Comment(s): Father of a IA in his 70's. Medications and Allergies Home Medications Medication Instructions Recorded Confirmed Type Isosorbide Mononitrate ER [Imdur] 30 mg PO DAILY 08/31/14 08/17/16 History Finasteride [Proscar] 5 mg PO DAILY 02/22/15 08/17/16 History Melatonin 10 mg PO HS 10/03/15 08/17/16 History Nitroglycerin Sl Tabs [Nitrostat] 0.4 mg SUBLINGUAL Q5M PRN 10/03/15 08/17/16 History Levothyroxine Sodium [Synthroid] 100 mcg PO DAILY 10/04/15 08/17/16 History Acetaminophen/Diphenhydramine 2 tab PO HS PRN 04/19/16 08/17/16 History [Tylenol PM 500-25mg] Cyanocobalamin [Vitamin B-12] 500 mcg PO DAILY 04/19/16 08/17/16 History Carvedilol [Coreg] 3.125 mg PO BID@0800,1700 08/03/16 08/17/16 History Ipratropium-Albuterol Nebulize 3 ml INHALATION RT-TID 08/03/16 08/17/16 History [Duoneb 0.5 mg-3 mg/3 ml Soln] Nitrofurantoin Monohyd/M-Cryst 100 mg PO BID 08/03/16 08/17/16 History [Macrobid] hydrOXYzine HCL [Atarax] 10 mg PO HS PRN 08/03/16 08/17/16 History Acetaminophen [Tylenol 8 Hour] 650 mg PO BID 08/17/16 08/17/16 History Famotidine [Pepcid] 20 mg PO BID@0800,1700 08/17/16 08/17/16 History Furosemide [Lasix] 20 mg PO BID@0600,1400 08/17/16 08/17/16 History Lactose-Reduced Food [Ensure Plus] 237 ml PO TID 08/17/16 08/17/16 History Mirtazapine [Remeron] 15 mg PO HS 08/17/16 08/17/16 History Spironolactone [Aldactone] 25 mg PO DAILY 08/17/16 08/17/16 History traMADol HCl [Ultram] 50 mg PO Q6H PRN 08/17/16 08/17/16 History Allergies Allergy/AdvReac Type Severity Reaction Status Date / Time lisinopril [From Zestril] Allergy Unknown Verified 08/17/16 18:06 peanut Allergy Unknown Verified 08/17/16 18:06 No blood thinners AdvReac Severe Unknown Uncoded 08/17/16 18:06 Surgical - Exam Vital Signs Temp Pulse Resp BP Pulse Ox 98.7 F 57 L 18 107/57 93 L 08/17/16 18:09 08/17/16 18:09 08/17/16 18:09 08/17/16 18:09 08/17/16 18:09 General: Patient is not alert and oriented to time, place and person. He is not in acute distress. HEENT: No pallor, no icterus Chest: Bilateral equal breath sounds present. Cardiovascular: Regular rate and rhythm. Abdomen: Soft, nontender, nondistended. No right upper quadrant tenderness. Farr sign negative. Results - Labs 08/19/16 06:12 08/19/16 06:12 Abnormal Lab Results - Last 24 Hours (Table) 08/19/16 08/19/16 Range/Units 06:12 06:12 WBC 10.7 H (3.8-10.6) k/uL RBC 4.12 L (4.30-5.90) m/uL Hgb 12.3 L (13.0-17.5) gm/dL MCHC 30.7 L (31.0-37.0) g/dL RDW 16.8 H (11.5-15.5) % Neutrophils # 8.0 H (1.3-7.7) k/uL Lymphocytes # 0.9 L (1.0-4.8) k/uL Eosinophils # 0.9 H (0-0.7) k/uL BUN 22 H (9-20) mg/dL Glucose 73 L (74-99) mg/dL Calcium 7.9 L (8.4-10.2) mg/dL Total Bilirubin 2.8 H (0.2-1.3) mg/dL Delta Bilirubin 2.0 H (0.0-0.2) mg/dL Total Protein 5.7 L (6.3-8.2) g/dL Albumin 2.3 L (3.5-5.0) g/dL Microbiology - Last 24 Hours (Table) 08/18/16 18:30 Urine Culture - Preliminary Urine,Clean Catch Diabetes panel 08/19/16 Range/Units 06:12 Sodium 139 (137-145) mmol/L Potassium 3.6 (3.5-5.1) mmol/L Chloride 106 (98-107) mmol/L Carbon Dioxide 24 (22-30) mmol/L BUN 22 H (9-20) mg/dL Creatinine 1.04 (0.66-1.25) mg/dL Glucose 73 L (74-99) mg/dL Calcium 7.9 L (8.4-10.2) mg/dL AST 39 (17-59) U/L ALT 56 (21-72) U/L Alkaline Phosphatase 115 (38-126) U/L Total Protein 5.7 L (6.3-8.2) g/dL Albumin 2.3 L (3.5-5.0) g/dL Thyroid panel 08/19/16 Range/Units 06:12 TSH 4.380 (0.465-4.680) mIU/L Calcium panel 08/19/16 Range/Units 06:12 Calcium 7.9 L (8.4-10.2) mg/dL Albumin 2.3 L (3.5-5.0) g/dL Pituitary panel 08/19/16 Range/Units 06:12 Sodium 139 (137-145) mmol/L Potassium 3.6 (3.5-5.1) mmol/L Chloride 106 (98-107) mmol/L Carbon Dioxide 24 (22-30) mmol/L BUN 22 H (9-20) mg/dL Creatinine 1.04 (0.66-1.25) mg/dL Glucose 73 L (74-99) mg/dL Calcium 7.9 L (8.4-10.2) mg/dL TSH 4.380 (0.465-4.680) mIU/L Adrenal panel 08/19/16 Range/Units 06:12 Sodium 139 (137-145) mmol/L Potassium 3.6 (3.5-5.1) mmol/L Chloride 106 (98-107) mmol/L Carbon Dioxide 24 (22-30) mmol/L BUN 22 H (9-20) mg/dL Creatinine 1.04 (0.66-1.25) mg/dL Glucose 73 L (74-99) mg/dL Calcium 7.9 L (8.4-10.2) mg/dL Total Bilirubin 2.8 H (0.2-1.3) mg/dL AST 39 (17-59) U/L ALT 56 (21-72) U/L Alkaline Phosphatase 115 (38-126) U/L Total Protein 5.7 L (6.3-8.2) g/dL Albumin 2.3 L (3.5-5.0) g/dL - Imaging US - abdomen: image reviewed (Gall bladder sludge.) Assessment and Plan (1) Syncope Status: Acute (2) Altered mental status Status: Acute Plan: 1.No abdominal pain. No peritonitis on clinical exam. 2. LFTs trening down 3. Gallbladder sludge. No clinical, radiological signs of acute cholecystitis 4. Patient is a poor surgical candidate due to multiple comorbid conditions and poor functional status 5. No surgical intervention planned. Discussed with patient's family.
[2016-08-19] MEDS: MELATONIN 5 MG TABLET PO SCH (21:43)
[2016-08-19] MEDS: TAMSULOSIN 0.4 MG CAP.ER.24H PO SCH (21:44)
[2016-08-19] MEDS: ESCITALOPRAM 10 MG TAB PO SCH (21:44)
--- NOTE | 2016-08-20 06:19 | PN ---
DATE OF SERVICE: 08/19/2016 PRESENTING COMPLAINT: Dehydration. INTERVAL HISTORY: This patient presented with TIA and dehydration. I did stop some of the medication that may interfere with his mentation and swallowing and patient is doing better. Also was gently hydrated. Daughter is at the bedside, extremely happy with his outcome. Patient actually did tolerate some diet. Walked in the room. He said right away hello stretching out his right arm. Review of systems done for constitutional, cardiovascular, GI, pulmonary; relevant findings as above. Current medications are reviewed. On examination, temperature 98, pulse 61, respirations 17, blood pressure 97/47, pulse ox 95% on room air. GENERAL APPEARANCE: Lying in bed, far more awake, perky. EYES: Pupils equal. Conjunctivae normal. NECK: JVD unable to assess. RESPIRATORY: Effort fair. Lungs fair entry. CARDIOVASCULAR: First and second sounds normal. No edema. ABDOMEN: Soft, nontender. Liver and spleen not palpable. PSYCHIATRY: Awake, answering questions more appropriately, more awake. INVESTIGATIONS: White count 10.7, hemoglobin 12.3, potassium 3.6, BUN 22, creatinine 1.04. TSH normal. ASSESSMENT: 1. Transient ischemic attack on presentation. 2. Clinical dehydration on presentation, now improved with gentle hydration. 3. Decreased appetite probably from medications, now improved. 4. Chronic bladder outflow obstruction. 5. Chronic congestive heart failure from systolic dysfunction. Ejection fraction 20 to 25%. 6. Gastroesophageal reflux disease. 7. Hypothyroidism. 8. Benign prostatic hypertrophy. 9. Chronic obstructive pulmonary disease. 10. Biventricular AICD. 11. Gallbladder sludge with clinical exam unremarkable, not for any further work-up. 12. Moderate protein calorie malnutrition from decreased oral intake. 13. Medical debility, multifactorial. 14. Pleural effusion, chronic. PLAN: IV fluids have been discontinued. Care was discussed with the patient's daughter in detail. She is happy with the outcome. Will add a very small dose of Lasix 20 mg. Other medication and treatment plan is to continue. Looking at discharge back to [facility]. Overall guarded prognosis.
[2016-08-20] MEDS: LEVOTHYROXINE 100 MCG TAB PO SCH (06:34)
[2016-08-20] MEDS: FAMOTIDINE 20 MG TAB PO SCH ×2 (08:35→16:41)
[2016-08-20] MEDS: CARVEDILOL 3.125 MG TAB PO SCH ×2 (08:35→16:41)
[2016-08-20] MEDS: ISOSORBIDE MONONITRATE ER 30 MG TAB.ER.24H PO SCH (08:35)
[2016-08-20] MEDS: FUROSEMIDE 20 MG TAB PO SCH (08:35)
[2016-08-20] MEDS: SPIRONOLACTONE 25 MG TAB PO SCH (08:35)
[2016-08-20] MEDS: CYANOCOBALAMIN 500 MCG TAB PO SCH (08:36)
[2016-08-20] MEDS: ASPIRIN 81 MG CHEW PO SCH (08:36)
[2016-08-20] MEDS: FINASTERIDE 5 MG TAB PO SCH (08:36)
[2016-08-20] MEDS: IPRATROPIUM-ALBUTEROL 3 ML NEB INHALATION SCH ×3 (10:06→20:23)
--- NOTE | 2016-08-20 11:00 | P.PN ---
Subjective Principal diagnosis: severe cardiomyopathy this is a pleasant 85-year-old gentleman with a past medical history significant for underlying dementia, coronary artery disease,severe cardiomyopathy, status post ICD, as well as multiple comorbid conditions was admitted to the hospital with a change in mental status. The patient was found to be dehydrated and he was started on IV fluid. On follow-up with him today, his mentation seems to be better. He does not have any chest pain or any chest discomfort. He underwent an echocardiogram which showed severely impaired LV function with an ejection fraction of 20%. Objective - Vital Signs Vital signs: Vital Signs Temp 97.9 F 08/20/16 08:00 Pulse 53 L 08/20/16 08:00 Resp 17 08/20/16 08:00 BP 103/52 08/20/16 08:00 Pulse Ox 93 L 08/20/16 08:00 Intake & Output 08/19/16 08/20/16 08/20/16 18:59 06:59 18:59 Intake Total 1012 100 Output Total 200 200 Balance 812 -200 100 Weight 74.5 kg Intake: IV 550 Sodium Chloride 0.9% 1, 550 000 ml @ 50 mls/hr IV . Q20H [facility] Rx#:[id number] Oral 462 100 Output: Urine 200 200 Other: Voiding Method Indwelling Catheter Indwelling Catheter Indwelling Catheter # Bowel Movements 1 - Constitutional General appearance: Present: no acute distress - Respiratory Respiratory: bilateral: diminished - Cardiovascular Heart sounds: normal: S1, S2 - Labs CBC & Chem 7: 08/19/16 06:12 08/19/16 06:12 Labs: Microbiology - Last 24 Hours (Table) 08/18/16 18:30 Urine Culture - Final Urine,Clean Catch Assessment and Plan Plan: assessment #1 change in mental status which has improved #2 underlying dementia #3 known severe cardiomyopathy and status post ICD #4 multiple comorbid conditions Plan #1 the patient mentation seems to be improved #2 he seems euvolemic on physical examination #3 hemodynamically he continues to be stable #4 we'll assess the need for Lasix tomorrow.
--- NOTE | 2016-08-20 16:10 | PN ---
DATE OF SERVICE: 08/20/2016 PRESENTING COMPLAINT: Dehydration. INTERVAL HISTORY: This patient presented with TIA, dehydration, did well with gentle hydration. Patient's son and patient's daughter is in the room. Patient did tolerate her breakfast. Did not sleep well last night but feeling better. Review of systems done for constitutional, cardiovascular, GI, pulmonary; relevant findings as above. Current medications are reviewed. P.o. Lasix was started this morning. On examination, temperature 97.9, pulse 53, respirations 17, blood pressure 103/52, pulse ox 93% on room air. GENERAL APPEARANCE: Sitting up in bed, not in distress. EYES: Pupils equal. Conjunctivae normal. NECK: JVD not raised. Respiratory effort normal. LUNGS: Fair air entry. CARDIOVASCULAR: First and second sounds normal. No edema. ABDOMEN: Soft, nontender. Liver and spleen not palpable. PSYCHIATRY: Awake, answering questions. INVESTIGATIONS: No blood work from today. ASSESSMENT: 1. Transient ischemic attack on presentation. 2. Clinical dehydration on presentation, improved with gentle hydration. 3. Decreased appetite from medication, now improved. 4. Chronic bladder outflow obstruction. 5. Chronic congestive heart failure from systolic dysfunction. Ejection fraction 20% to 25%. 6. Gastroesophageal reflux disease. 7. Hypothyroidism. 8. Benign prostatic hypertrophy. 9. Chronic obstructive pulmonary disease. 10. Biventricular AICD. 11. Gallbladder sludge with clinical examination unremarkable, not for any further work-up. 12. Moderate protein calorie malnutrition from decreased oral intake. 13. Medical debility, multifactorial. 14. Pleural effusion, chronic. PLAN: Patient is started on oral Lasix this morning. Overall prognosis is guarded. Repeat BMP in the morning. Looking at the patient going being back to [facility] hopefully tomorrow.
[2016-08-20] MEDS: MELATONIN 5 MG TABLET PO SCH (21:05)
[2016-08-20] MEDS: ESCITALOPRAM 10 MG TAB PO SCH (21:05)
[2016-08-20] MEDS: TAMSULOSIN 0.4 MG CAP.ER.24H PO SCH (21:05)
[2016-08-21 05:40] VITALS: RESP 18
[2016-08-21] MEDS: LEVOTHYROXINE 100 MCG TAB PO SCH (06:01)
[2016-08-21 06:46] LABS: Anion Gap 5 mmol/L; Blood Urea Nitrogen 20 mg/dL (9-20); Calcium 7.7 mg/dL (8.4-10.2); Carbon Dioxide 25 mmol/L (22-30); Chloride 108 mmol/L (98-107); Glucose 75 mg/dL (74-99); Non-African American GFR(MDRD) >60 (>60 ml/min/1.73 sqM); Potassium 3.7 mmol/L (3.5-5.1); Sodium 138 mmol/L (137-145)
[2016-08-21] MEDS: IPRATROPIUM-ALBUTEROL 3 ML NEB INHALATION SCH ×2 (08:09→14:00)
[2016-08-21] MEDS: CARVEDILOL 3.125 MG TAB PO SCH ×2 (08:57→12:44)
[2016-08-21] MEDS: FUROSEMIDE 20 MG TAB PO SCH ×2 (08:57→12:44)
[2016-08-21] MEDS: FAMOTIDINE 20 MG TAB PO SCH (08:57)
[2016-08-21] MEDS: ISOSORBIDE MONONITRATE ER 30 MG TAB.ER.24H PO SCH ×2 (08:57→12:44)
[2016-08-21] MEDS: SPIRONOLACTONE 25 MG TAB PO SCH ×2 (08:57→12:44)
[2016-08-21] MEDS: ASPIRIN 81 MG CHEW PO SCH (08:57)
[2016-08-21] MEDS: FINASTERIDE 5 MG TAB PO SCH (08:58)
--- NOTE | 2016-08-21 12:15 | P.PN ---
Subjective Principal diagnosis: Syncope This is a confused 85-year-old gentleman who presented to the emergency department who was noted to have an episode of decreased responsiveness by his . Patient does have a history of dementia and is a current resident of [facility]. The patient is a poor historian and is unable to recall the events surrounding his admission. According to medical records and ER notes, the patient's said she was visiting him and while he was seated he appeared to fall asleep and she was unable to arouse him for a number of minutes. Patient does have history of coronary artery disease, severe cardiomyopathy with prior AICD implant. Upon presentation CT of the brain showed no definite acute process, stable appearance compared to 08/03/2016. Patient underwent chest x- ray that showed improved lung flexion compared to previous study and EKG showed biventricular paced rhythm. He appeared to be dehydrated, received IV fluids. LV function 20%. Upon examination this morning, patient is resting in bed comfortably. Breathing is stable. He is minimally responsive verbally. Objective - Vital Signs Vital signs: Vital Signs Temp 96.6 F L 08/21/16 08:00 Pulse 68 08/21/16 08:16 Resp 18 08/21/16 08:00 BP 88/42 08/21/16 08:00 Pulse Ox 95 08/21/16 08:00 Intake & Output 08/20/16 08/21/16 08/21/16 18:59 06:59 18:59 Intake Total 300 100 Output Total 300 50 1 Balance 0 -50 99 Weight 72 kg Intake: Oral 300 100 Output: Urine 300 50 Stool 1 Other: Voiding Method Indwelling Catheter Urinal # Voids 1 # Bowel Movements 1 1 - Exam PHYSICAL EXAMINATION: HEENT: Head is atraumatic, normocephalic. Pupils equal, round. Neck is supple. There is no elevated jugular venous pressure. HEART EXAMINATION: Heart S1-S2 systolic murmur is heard. CHEST EXAMINATION: Lungs are clear to auscultation and precussion. No chest wall tenderness is noted on palpation or with deep breathing. ABDOMEN: Soft, nontender. Bowel sounds are heard. No organomegaly noted. EXTREMITIES: 2+ peripheral pulses with no evidence of peripheral edema and no calf tenderness noted. NEUROLOGIC [patient is sleepy, difficult to arouse. - Labs CBC & Chem 7: 08/19/16 06:12 08/21/16 06:00 Labs: Abnormal Lab Results - Last 24 Hours (Table) 08/21/16 Range/Units 06:00 Chloride 108 H (98-107) mmol/L Calcium 7.7 L (8.4-10.2) mg/dL Assessment and Plan (1) AICD (automatic cardioverter/defibrillator) present Status: Acute (2) Dehydration Status: Acute (3) Syncope Status: Acute (4) Altered mental status Status: Acute (5) COPD (chronic obstructive pulmonary disease) Status: Acute (6) CVA (cerebral vascular accident) Status: Acute (7) Ischemic cardiomyopathy Status: Acute Plan: From cardiology's perspective, we will recommend to continue current medications which include aspirin 81 mg daily, Coreg 3.125 mg twice a day, Lasix 20 mg daily, Imdur 30 mg daily, Aldactone 25 mg daily, and we will follow this patient with you now on an as-needed basis only, please don't hesitate to call with any questions. DNP note has been reviewed, I agree with a documented findings and plan of care. Patient was seen and examined.
[2016-08-21] MEDS: CYANOCOBALAMIN 500 MCG TAB PO SCH (12:44)
--- NOTE | 2016-08-21 14:00 | DS ---
DATE OF ADMISSION: 08/17/2016 DATE OF DISCHARGE: 08/21/2016 FINAL DIAGNOSES: 1. Possible transient ischemic attack on presentation. 2. Dehydration from diuretics and decreased oral intake on presentation. 3. Decreased appetite from anorexia from medications, improved. 4. Chronic congestive heart failure from systolic dysfunction. Ejection fraction 20% to 25%. 5. Gastroesophageal reflux disease. 6. Hypothyroidism. 7. Benign prostatic hypertrophy. 8. Chronic obstructive pulmonary disease. 9. Biventricular AICD. 10. Gallbladder sludge with clinical exam unremarkable, not for any further work-up as per Surgery. 11. Moderate protein calorie malnutrition from decreased oral intake. 12. Medical debility, multifactorial. 13. Pleural effusion, chronic from congestive heart failure. CONSULTATIONS: 1. Dr. Santacruz from Cardiology. 2. Dr. Finney from General Surgery. HOSPITAL COURSE: This patient presented after he suddenly slumped over with facial asymmetry, probably TIA. Patient's EF is 20%, some of patient's medications are cut back. Patient actually did better. Appetite improved. Antibiotic course was discontinued. Overall prognosis is guarded given his age. Care had been discussed with the son and daughter in detail. On examination: LUNGS: Slightly decreased breath sounds. PSYCH: Alert and oriented x3. DC planning more than 35 minutes including discussion. DISCHARGE MEDICATIONS: 1. Proscar 5 mg p.o. daily. 2. Melatonin 10 mg p.o. q.h.s. 3. Nitrostat 0.4 sublingual q.5 p.r.n. 4. Synthroid 100 mcg p.o. daily. 5. Flomax 0.4 mg p.o. q.h.s. 6. Vitamin B12 five hundred mcg p.o. daily. 7. Coreg 3.125 p.o. b.i.d. 8. DuoNeb t.i.d. 9. Pepcid 20 mg p.o. b.i.d. 10. Ensure 1 can p.o. t.i.d. 11. Tylenol No. 3 one tablet p.o. q.6 p.r.n. 12. Aspirin 81 mg p.o. daily. 13. Lexapro 10 mg p.o. q.h.s. 14. Lasix 20 mg p.o. daily. 15. Imdur ER 30 mg p.o. daily at 1p.m. 16. Aldactone 25 mg p.o. daily at 1 p.m. DISPOSITION: [place]. Follow up with Dr. Cherry. LABS: CBC, BMP in 3 days. Prognosis guarded. ADVANCED CARE PLANNING: I spoke at length with patient's son, Chris today. Given patient's EF of 20%, other comorbidities, and it was decided the patient will be made DO NOT RESUSCITATE. If his heart is to stop, he will not be shocked, not put on a breathing machine and this in addition to discharge planning was additional about 20 minutes. CODE STATUS: DNR.
[2016-08-21 14:21] VITALS: BMI 21.5
[2016-08-21 15:13] VITALS: BP 116/66; PULSE 59; TEMP 97.1
== END 2016-08-21 16:40 | DRG 69 ==
LOC: EC 17:55 → 6SEL 20:43
PROVIDERS: ADMIT Hospitalist; ATTEND Hospitalist
PROC: 4B02XTZ Measurement of Cardiac Defibrillator, External Approach (ICD-10-PCS; principal; 2016-08-18)
PROC: 0T9B70Z Drainage of Bladder with Drainage Device, Via Natural or Artificial Opening (ICD-10-PCS; 2016-08-20)
DX: G45.9 Transient cerebral ischemic attack, unspecified (principal); E44.0 Moderate protein-calorie malnutrition; I50.22 Chronic systolic (congestive) heart failure; F03.90 Unspecified dementia, unspecified severity, without behavioral disturbance, psychotic disturbance, mood disturbance, and anxiety; I27.2 Other secondary pulmonary hypertension; I13.0 Hypertensive heart and chronic kidney disease with heart failure and stage 1 through stage 4 chronic kidney disease, or unspecified chronic kidney disease; J44.9 Chronic obstructive pulmonary disease, unspecified; Z66 Do not resuscitate; I25.5 Ischemic cardiomyopathy; E86.0 Dehydration; T50.2X5A Adverse effect of carbonic-anhydrase inhibitors, benzothiadiazides and other diuretics, initial encounter; I25.2 Old myocardial infarction; I25.10 Atherosclerotic heart disease of native coronary artery without angina pectoris; N18.3 Chronic kidney disease, stage 3 (moderate); N32.0 Bladder-neck obstruction; D64.9 Anemia, unspecified; M54.9 Dorsalgia, unspecified; F32.9 Major depressive disorder, single episode, unspecified; E03.9 Hypothyroidism, unspecified; K21.9 Gastro-esophageal reflux disease without esophagitis; K82.8 Other specified diseases of gallbladder; R53.1 Weakness; M62.50 Muscle wasting and atrophy, not elsewhere classified, unspecified site; K57.90 Diverticulosis of intestine, part unspecified, without perforation or abscess without bleeding; M19.90 Unspecified osteoarthritis, unspecified site; M54.16 Radiculopathy, lumbar region; E78.5 Hyperlipidemia, unspecified; Z98.49 Cataract extraction status, unspecified eye; Z82.49 Family history of ischemic heart disease and other diseases of the circulatory system; Z95.5 Presence of coronary angioplasty implant and graft; Z86.73 Personal history of transient ischemic attack (TIA), and cerebral infarction without residual deficits; Z95.810 Presence of automatic (implantable) cardiac defibrillator; Z88.8 Allergy status to other drugs, medicaments and biological substances; Z86.79 Personal history of other diseases of the circulatory system; Z68.21 Body mass index [BMI] 21.0-21.9, adult; Z87.440 Personal history of urinary (tract) infections; Z87.01 Personal history of pneumonia (recurrent); Z86.14 Personal history of Methicillin resistant Staphylococcus aureus infection; Z87.891 Personal history of nicotine dependence; Z91.010 Allergy to peanuts; Z79.2 Long term (current) use of antibiotics; Z79.891 Long term (current) use of opiate analgesic; Z79.899 Other long term (current) drug therapy; Z86.69 Personal history of other diseases of the nervous system and sense organs
CPT/HCPCS: 36415; 70450; 71010; 80048; 80053; 81003; 82140; 82248; 82550; 82553; 84443; 84484; 85025; 85610; 85730; 87086; 93005; 93306; 94640; 99285